=== PATIENT | male | born 1940 | race Caucasian/White ===

== ENCOUNTER 2017-03-27 10:13 | Outpatient (CLI) | payer MEDICARE, BC ==
[2017-03-27 12:22] LABS: #Basophils 0.1 thou/uL (0.0-0.2); #Eosinphils 0.1 thou/uL (0.0-0.7); #Lymphocytes 1.3 thou/uL (1.20-3.40); #Monocytes 0.7 thou/uL (0.11-0.59); #Neutrophils 5.1 thou/uL (1.40-6.50); %Basophils 0.7 % (0.0-1.0); %Eosinophils 1.2 % (0.0-10.0); %Lymphocytes 18.1 % (21.0-51.0); %Monocytes 9.3 % (0.0-10.0); Mean Platelet Volume 8.8 fL (7.4-10.4); Red Blood Cell (RBC) Count 5.11 mill/uL (4.70-6.10); White Blood Cell (WBC) Count 7.1 thou/uL (4.8-10.8)
[2017-03-27 12:33] LABS: PTT 32.7 SEC (22.9-36.1)
[2017-03-27 12:53] LABS: ALT (SGPT) 21 U/L (8-55); AST (SGOT) 22 U/L (5-34); Alkaline Phosphatase 98 U/L (40-150); Anion Gap 10 mmol/L (10-20); BUN (Urea Nitrogen) 15 mg/dL (8.4-25.7); Bilirubin, Total 0.6 mg/dL (0.2-1.2); Calc. Creatinine Clearance 0 mL/min (70-130); Calcium 9.3 mg/dL (7.8-10.44); Carbon Dioxide 28 mmol/L (23-31); Chloride 107 mmol/L (98-107); Estimated GFR-MDRD Greater than 90; Globulin 2.3 g/dL (2.4-3.5); Protein, Total 6.5 g/dL (5.8-8.1)
== END 2017-03-27 10:14 | disposition home or self-care (01) ==
LOC: LABBT 10:13
PROVIDERS: ATTEND Surgery
DX: Z01.818 Encounter for other preprocedural examination (principal); K40.90 Unilateral inguinal hernia, without obstruction or gangrene, not specified as recurrent
CPT/HCPCS: 80053; 85025; 85610; 85730; 93005; 93010

== ENCOUNTER 2017-04-03 10:01 | Day surgery (SDC) | payer MEDICARE, BC ==
[2017-03-27 10:43] VITALS: BMI 30.4
[2017-04-03] MEDS ORDERED: CEFAZOLIN/Water 2 GM/20 ML SYRINGE ONE (10:37)
[2017-04-03] MEDS ORDERED: Ondansetron HCl/PF 4 MG/2 ML Vial ONE (11:05)
[2017-04-03] MEDS ORDERED: PHENYLEPHRINE-NS 100 MCG/ML 10 ML SYRINGE ONE (11:05)
[2017-04-03] MEDS ORDERED: Lidocaine 1% PF 5 ML VIAL ONE (11:05)
[2017-04-03] MEDS ORDERED: Dexamethasone 20 MG/5 ML VIAL ONE (11:05)
[2017-04-03] MEDS ORDERED: Propofol 200 MG/20 ML VIAL ONE (11:05)
[2017-04-03] MEDS ORDERED: Metoclopramide HCl 10 MG/2 ML VIAL ONE (11:05)
[2017-04-03] MEDS ORDERED: Bupivacaine/Epinephrine 0.25% 30 ML VIAL ONE (11:59)
[2017-04-03] MEDS ORDERED: HYDROmorphone 0.5 MG/0.5 ML SYRINGE ONE (12:23)
[2017-04-03] MEDS ORDERED: Fentanyl 100 MCG/2 ML VIAL ONE (12:23)
[2017-04-03] MEDS ORDERED: Lidocaine 2% PF 5 ML VIAL ONE (12:32)
--- NOTE | 2017-04-03 13:48 | OP ---
PREOPERATIVE DIAGNOSIS: Left inguinal hernia. SURGEON: Dr. Addi Godoy. PROCEDURE PERFORMED: Left inguinal hernia repair with mesh. INDICATIONS: This is a 77-year-old male with a painful bulge in the left groin and was found to have a hernia. FINDINGS: Left indirect inguinal hernia. PROCEDURE IN DETAIL: After informed consent was obtained, the patient was taken to the operating judy m and given general mask anesthesia, placed in the supine position. His groin area was prepped and d raped in the usual fashion. Local anesthesia infiltrated subcutaneously and deep. A transverse left inguinal incision was performed. The subcu divided sharply. The fascia of the external oblique was incised in the direction of its fibers through the external ring. Spermatic cord isolated with a Pe nrose drain. The hernia sac was dissected from surrounding cord structures down to the internal ring and reduced. Reduction was maintained utilizing a PHS hernia system. The posterior layer placed in the preperitoneal space. Anterior, it was laid out. It was sutured to the pubic tubercle medially, tucked under the external oblique fascia laterally. A notch was cut out for the spermatic cord. Th e external oblique fascia was then closed over the cord with a running 3-0 Vicryl after hemostasis as sured, then Francisco was closed with interrupted 3-0 Vicryl and the skin closed with a running subcutic ular 4-0 Rapide. Steri-Strips applied. Sterile bandage applied. The patient tolerated the procedur e well and transferred to recovery in good condition. Sponge and needle count verified correct x2.
== END 2017-04-03 15:10 | disposition home or self-care (01) ==
LOC: SDC 10:01
PROVIDERS: ATTEND Surgery
PROC: 0YU60JZ Supplement Left Inguinal Region with Synthetic Substitute, Open Approach (ICD-10-PCS; principal; 2017-04-03)
DX: K40.90 Unilateral inguinal hernia, without obstruction or gangrene, not specified as recurrent (principal); Z86.73 Personal history of transient ischemic attack (TIA), and cerebral infarction without residual deficits; I10 Essential (primary) hypertension; I48.91 Unspecified atrial fibrillation; K21.9 Gastro-esophageal reflux disease without esophagitis; E78.00 Pure hypercholesterolemia, unspecified; Z79.01 Long term (current) use of anticoagulants; Z79.899 Other long term (current) drug therapy; Z88.5 Allergy status to narcotic agent; Z88.2 Allergy status to sulfonamides; Z96.653 Presence of artificial knee joint, bilateral; Z97.0 Presence of artificial eye; Z96.1 Presence of intraocular lens; Z90.49 Acquired absence of other specified parts of digestive tract; Z90.89 Acquired absence of other organs; Z98.890 Other specified postprocedural states; Z85.828 Personal history of other malignant neoplasm of skin
CPT/HCPCS: 49505; C1781; J0131; J1100; J1170; J2001; J2405; J2704; J2765; J3010

== ENCOUNTER 2017-04-04 10:50 | Observation (INO) | payer MEDICARE, BC ==
[2017-04-04 11:47] LABS: #Lymphocytes 1.6 thou/uL (1.20-3.40); #Neutrophils 7.2 thou/uL (1.40-6.50); %Basophils 0.2 % (0.0-1.0); %Eosinophils 0.4 % (0.0-10.0); %Lymphocytes 16.3 % (21.0-51.0); %Monocytes 9.8 % (0.0-10.0); %Neutrophils 73.3 % (42.0-75.0); Mean Corpuscular HGB CONC 32.8 g/dL (32.0-36.0); Mean Corpuscular Hemoglobin 32.4 pg (27.0-31.0); Mean Corpuscular Volume 98.7 fl (80.0-94.0); Mean Platelet Volume 8.7 fL (7.4-10.4); Platelet Count 111 thou/uL (130-400); RBC Distribution Width 11.7 % (11.5-14.5); Red Blood Cell (RBC) Count 4.93 mill/uL (4.70-6.10); White Blood Cell (WBC) Count 9.8 thou/uL (4.8-10.8)
--- NOTE | 2017-04-04 12:02 | CT ---
CT BRAIN NONCONTRAST: HISTORY: A 77-year-old male with acute stroke symptoms: altered mental status and dysarthria. Dr. Rogel gave verbal report to Dr. Nguyen of the emergency department at 11:30 a.m. for this stroke al ert protocol CT. FINDINGS: There is no midline shift or any other mass effect. There is no evidence of acute intracranial hemor rhage, large cortical infarct, obstructive hydrocephalus, or extraaxial fluid collection. The calvar ium is intact. There is diffuse parenchymal volume loss. There are low attenuation areas in the whi te matter. These are nonspecific, but in a patient of this age, they are probably chronic ischemic w luis matter changes due to microvascular atherosclerosis. IMPRESSION: 1) No acute intracranial findings. 2) Involutional changes and chronic ischemic white matter changes. CODE CR jn [] POS: [facility]
[2017-04-04] MEDS ORDERED: ISOVUE-370 76%-LOCM 1 ML ONE (12:03)
[2017-04-04 12:12] LABS: CKMB 4.9 ng/mL (0-6.6); Troponin I Less than 0.010 ng/mL (< 0.028)
[2017-04-04 12:13] LABS: ALT (SGPT) 64 U/L (8-55); AST (SGOT) 47 U/L (5-34); Alkaline Phosphatase 91 U/L (40-150); Anion Gap 12 mmol/L (10-20); BUN (Urea Nitrogen) 18 mg/dL (8.4-25.7); Bilirubin, Total 0.6 mg/dL (0.2-1.2); CK (CPK) 120 U/L (30-200); Calc. Creatinine Clearance 0 mL/min (70-130); Calcium 9.2 mg/dL (7.8-10.44); Carbon Dioxide 26 mmol/L (23-31); Chloride 105 mmol/L (98-107); Estimated GFR-MDRD 74; Globulin 2.3 g/dL (2.4-3.5); Glucose 193 mg/dL (83-110); Protein, Total 6.3 g/dL (5.8-8.1); Sodium 139 mmol/L (136-145)
--- NOTE | 2017-04-04 12:26 | CT ---
CT ANGIOGRAM OF THE NECK WITH CONTRAST CT ANGIOGRAM OF THE HEAD WITH CONTRAST CT PERFUSION OF HEAD WITH CONTRAST: Date: 04-04-17 History: 77-year-old male with altered mental status, dizziness, confusion. This stat [facility] alert protocol report given verbally to Dr. Nguyen at 12:05 pm, 04/04/2017. Technique: IV contrast bolus injection of Isovue. Arterial bolus chasing technique scan performed from pio to vertex of head. Coronal and sagittal 3 D MIP reconstructions. Multiple post contrast axial images through the head performed excluding the u pper and lower portions of the brain. FINDINGS: On the perfusion scan, there is no asymmetry in mean transit time, IRF, cerebral arterial blood flow, or cerebral arterial blood volume. No evidence of high grade stenosis or occlusion of anterior circu lation or posterior circulation in the [place]. Left vertebral artery is dominant. Atheroscl erotic calcification of carotid siphons bilaterally. No intracranial aneurysm identified. Calcified p laque in the bilateral carotid bulbs. No high grade stenosis of bilateral internal carotid arteries o r common carotid arteries, although left internal carotid artery images are very degraded by dense IV contrast material in adjacent left internal jugular vein. Origin of left common carotid artery obscu red by streak artifact from adjacent dense contrast bolus in the left subclavian vein and left internet site designer al jugular vein. IMPRESSION: 1. No evidence of cerebral ischemia or infarction. 2. No high grade stenosis of major arteries of the neck or intracranially, although the evaluation of the left neck arteries is limited. 3. Cervical spondylosis. Code CR POS: [facility]
--- NOTE | 2017-04-04 12:39 | RAD ---
PORTABLE CHEST: History: Chest pain. Comparison: 08-18-14 FINDINGS: Lungs are clear. No infiltrate. Heart size upper normal but stable. Aortic calcifications unchanged i n appearance. Vascular markings normal. IMPRESSION: No acute process identified. POS: [facility]
[2017-04-04] MEDS ORDERED: HYDROcodone/Acetaminophen 7.5/325 mg Tablet PO PRN (14:25)
[2017-04-04] MEDS ORDERED: Ondansetron ODT 4 MG TAB PO PRN (14:25)
[2017-04-04] MEDS ORDERED: HYDROcodone/Acetaminophen 5/325 mg Tablet PO PRN (14:25)
[2017-04-04 15:28] LABS: INR-International Normal Ratio 1.1
--- NOTE | 2017-04-04 15:32 | ULT ---
ULTRASOUND CAROTID DOPPLER STANDARD: HISTORY: TIA, disequilibrium, diplopia. COMPARISON: Ultrasound 2008. TECHNIQUE: Real-time cool scale, color Doppler, and spectral analysis of the extracranial carotid arteries perfo rmed. FINDINGS: No elevated peak systolic velocities within the internal carotid arteries. Antegrade flow both verte bral arteries. Moderate atherosclerotic plaque. IMPRESSION: No hemodynamically significant stenosis. POS: [facility]
[2017-04-04 15:48] LABS: Troponin I 0.016 ng/mL (< 0.028)
--- NOTE | 2017-04-04 16:31 | MRI ---
MR OF THE BRAIN WITHOUT CONTRAST: INDICATION: Lightheadedness and feeling unsteady with double vision. TECHNIQUE: Multiplanar, multisequence MR images were obtained of the brain without IV contrast. Comparisons are made with a prior CT examination of the brain dated 04/04/17. FINDINGS: No area of restricted diffusion is seen to suggest the presence of acute ischemia. There is a tiny r emote lacunar infarct involving the right cerebellar hemisphere. There is mild chronic small-vessel white matter ischemic change. The septum pellucidum and third ventricle are midline. The intracrani al arteries demonstrate appropriate flow voids. The skull and extracranial soft tissues appear withi n normal limits. No intracranial hemorrhage is evident. IMPRESSION: 1. No acute intracranial abnormality. 2. Mild chronic small-vessel white matter ischemic change. POS: [facility]
[2017-04-04 17:09] VITALS: BMI 30.5
[2017-04-04] MEDS ORDERED: Warfarin Sodium 7.5 MG TAB PO SCH (17:30)
[2017-04-04] MEDS ORDERED: hydrALAZINE 20 MG/ML VIAL SLOW IVP PRN (18:11)
[2017-04-04 19:10] LABS: Troponin I Less than 0.010 ng/mL (< 0.028)
[2017-04-04] MEDS ORDERED: OXcarbazepine 600 MG TAB PO SCH (21:00)
[2017-04-04] MEDS ORDERED: Digoxin 0.125 MG TAB PO SCH (21:00)
[2017-04-04] MEDS ORDERED: Atorvastatin Calcium 40 MG TAB PO SCH (21:00)
[2017-04-04] MEDS: Famotidine 20 MG TAB PO SCH (21:52)
[2017-04-04] MEDS: Acetaminophen 325 MG TAB PO PRN (21:53)
[2017-04-04] MEDS: Enoxaparin Sodium 100 MG/ML SYRINGE SC SCH (21:53)
[2017-04-04] MEDS: OXcarbazepine 300 MG TAB PO SCH (21:54)
--- NOTE | 2017-04-04 22:09 | CON ---
DATE OF CONSULTATION: 04/04/2017 REASON FOR CONSULTAION: Gait imbalance, dizziness. REFERRING PHYSICIAN: Dr. Jude Sal. HISTORY OF PRESENT ILLNESS: Mr. Najera is a pleasant 77-year-old male who has been cons ulted for evaluation of gait imbalance and dizziness. Patient reports that this morning, he was at h ome sitting down on his office table, working on his work and suddenly noted feeling off balance. He also noted double vision to come on, he did not feel good, which prompted him to feel as if he needs to lay down on to his bed, when he tried to walk, he felt off balance and wobbly. His had call ed his primary care physician's office who advised them to bring him to the [facility] for further evaluation. He reports that on arrival here, his symptoms did improve, he was noted to have significantly elevated blood pressure on arrival to the ER. He says that normally over the past 2-4 weeks he has been checked multiple times by his physicians, but his blood pressure has been runn ing normal. This is the first time that has been really elevated. He denies having any headache, ch est pain, palpitation, nausea, vomiting, abdominal pain, numbness, tingling, or weakness. He does patricio ve a history of trigeminal neuralgia on the right side of the face for which he takes Trileptal. He says that recently, he had increased the dose of Trileptal to 300 mg 1/2 tablet twice a day. He also had a hernia repair done on yesterday. PAST MEDICAL HISTORY: Significant for hypertension, GERD, hyperlipidemia, atrial fibrillation, histo ry of stroke, and trigeminal neuralgia. PAST SURGICAL HISTORY: Significant for cardiac ablation done, bilateral knee replacement, cataract s urgery in both sides, hernia repair, lumbar spine surgery, right wrist surgery and appendectomy. SOCIAL HISTORY: He denies smoking, alcohol use, or illicit drug use. He is . CURRENT MEDICATIONS: Please review MAR. ALLERGIES: Include CODEINE and SULFA DRUGS. REVIEW OF SYSTEMS: As mentioned above in the HPI, otherwise negative. PHYSICAL EXAMINATION: VITAL SIGNS: Blood pressure of 197/109, pulse of 75, temperature of 98.9, respirations of 18, O2 sat s of 95% on room air. GENERAL: Well-developed, well-nourished male in no apparent distress. RESPIRATORY: Clear to auscultation bilaterally. CARDIOVASCULAR: Regular rate and rhythm. NEUROLOGIC: Mental status: Patient is awake, alert, oriented x3. Speech and language: Fluent spee ch. Cranial nerves: Pupils are 3 mm and reactive. Visual pugh are intact. External muscles are intact. No nystagmus noted. Face is symmetric. Tongue and uvula are midline. Motor exam showed no rmal tone and bulk with 5/5 strength in both upper and lower extremities. Sensory: Sensation is int act and symmetric. Deep tendon reflexes 2+ reflexes in both upper and lower extremities. Babinski: Plantar responses flexion bilaterally. Deep tendon reflexes are 2+ reflexes in both upper and lower extremities. Coordination intact to [id number]-hyfa-[id number] tapping bilaterally. LABORATORY DATA: Reviewed, which included CBC, coag panel, CMP, which is significant for glucose of 193, AST of 47, ALT of 64. PT of 14.0, INR 1.1, otherwise unremarkable. IMAGING STUDIES: MRI brain without contrast was reviewed, which showed no acute intracranial abnorma lity. CT angiogram of the head and neck were reviewed, which showed no acute intracranial or extracr anial vascular abnormality. IMPRESSION: 1. Transient ischemic attack. 2. Malignant hypertension. 3. Atrial fibrillation. ASSESSMENT AND PLAN: Mr. Najera is a pleasant 77-year-old male who presented with the e pisodes of feeling off balance and diplopia that has now resolved. On arrival here, his blood pressu re is noted to be significantly elevated. This is likely suggestive of hypertensive urgency. At thi s time, I will recommend continuing current medical management. I have advised him that he needs to manage his blood pressure 2-3 twice a day for the next 2-4 weeks to keep diary of his blood pressure and so that his primary care physician can adjust his medications. Also, his INR level is only 1.1 w hile on therapeutic Coumadin, thus he needs to be discussing with his primary care physician to adjus t the dosage of his Coumadin. No further neurological workup needed from my standpoint.
[2017-04-05] MEDS: Acetaminophen 325 MG TAB PO PRN ×2 (03:24→09:22)
[2017-04-05 06:32] LABS: Anion Gap 12 mmol/L (10-20); BUN (Urea Nitrogen) 13 mg/dL (8.4-25.7); Calc. Creatinine Clearance 113 mL/min (70-130); Carbon Dioxide 26 mmol/L (23-31); Chloride 105 mmol/L (98-107); Estimated GFR-MDRD Greater than 90; Glucose 134 mg/dL (83-110); Potassium 3.8 mmol/L (3.5-5.1); Sodium 139 mmol/L (136-145)
[2017-04-05 06:33] LABS: #Lymphocytes 1.1 thou/uL (1.20-3.40); #Monocytes 0.9 thou/uL (0.11-0.59); #Neutrophils 6.8 thou/uL (1.40-6.50); %Basophils 0.3 % (0.0-1.0); %Eosinophils 0.5 % (0.0-10.0); %Lymphocytes 12.2 % (21.0-51.0); %Monocytes 10.5 % (0.0-10.0); %Neutrophils 76.5 % (42.0-75.0); Hemoglobin 15.8 g/dL (14.0-18.0); Mean Corpuscular HGB CONC 33.3 g/dL (32.0-36.0); Mean Corpuscular Hemoglobin 32.8 pg (27.0-31.0); Mean Corpuscular Volume 98.5 fl (80.0-94.0); Mean Platelet Volume 7.9 fL (7.4-10.4); Platelet Count 105 thou/uL (130-400); Red Blood Cell (RBC) Count 4.83 mill/uL (4.70-6.10); White Blood Cell (WBC) Count 8.8 thou/uL (4.8-10.8)
[2017-04-05 06:46] LABS: INR-International Normal Ratio 1.1; Prothrombin Time 14.3 SEC (12.0-14.7)
[2017-04-05 07:51] VITALS: TEMP 98.1
[2017-04-05] MEDS: Famotidine 20 MG TAB PO SCH (08:22)
[2017-04-05] MEDS: Enoxaparin Sodium 100 MG/ML SYRINGE SC SCH (08:23)
[2017-04-05] MEDS ORDERED: Furosemide 20 MG TAB PO SCH (09:00)
[2017-04-05] MEDS ORDERED: Hydrochlorothiazide 25 MG TAB PO SCH (09:00)
[2017-04-05] MEDS ORDERED: Potassium Chloride 10 MEQ TAB PO SCH (09:00)
[2017-04-05] MEDS: OXcarbazepine 300 MG TAB PO SCH (09:14)
--- NOTE | 2017-04-05 15:02 | DIS ---
PRIMARY CARE PHYSICIAN: Dr. Ronnie Banegas. PRIMARY EDITOR SOUND: Dr. Flash Guillen. DATE OF ADMISSION: 04/04/2017 DATE OF DISCHARGE: 04/05/2017 DISCHARGE DIAGNOSES: 1. Hypertensive urgency. 2. Hypertension. 3. Atherosclerotic heart disease/coronary artery disease. 4. Hyperlipidemia. 5. Trigeminal neuralgia. 6. Chronic atrial fibrillation, on chronic anticoagulation. CONSULTATION: Dr. Linda Saunders on 04/04/2017. PROCEDURES PERFORMED: 1. MRI of the brain, negative for acute ischemia. 2. Carotid Doppler, negative for hemodynamically significant stenoses. 3. A CT scan of the brain and CTA with brain perfusion, negative for acute disease. HISTORY AND PHYSICAL: Mr. Najera is a 77-year-old gentleman who was in his normal state of health until 04/04, while getting things ready for the holidays, he developed a horizontal diplop ia, and felt dysequilibrium. He presented to the Emergency Department for evaluation. Symptoms reso lved, but his blood pressure was still elevated. We were called for admission for rule out stroke ve rsus TIA. HOSPITAL COURSE: The patient was seen and examined by me in the Emergency Department, other than the blood pressure of 190s over 110s, his exam was negative. He was placed in observation in the stroke unit and was monitored. Telemetry remained negative. Blood pressure after getting his regular medi cations remained in the 140s-150s systolic overnight; however, this morning it was back in the 190s o susana 110s. He had no further neurologic symptoms. Imaging studies were all negative. The patient wa s seen by neurology last night who felt it was all hypertensive urgency related to his hypertension. Today, once the blood pressure morning medicines were given, his blood pressure medicines were adjust ed to increase his Cardizem to 240 mg q.24 hours and his HCTZ to 25 mg daily and the patient was disc harged home with outpatient followup. PHYSICAL EXAMINATION: The patient was seen and examined on the day of discharge. Discharge plan and disposition was discussed with the patient and his [id number]-ci-dbbn at the bedside. DISCHARGE MEDICATIONS: 1. Hydrochlorothiazide increased to 25 mg p.o. daily, prescription for 90 days with 1 refill sent. 2. Diltiazem CD increased to 240 mg q.24 hours one tablet daily, prescription for 90 days with 1 ref ill sent. 3. Tylenol as needed. 4. Lipitor 40 mg p.o. at bedtime. 5. Lanoxin 0.125 mg p.o. at bedtime. 6. Zetia 10 mg p.o. at bedtime. 7. Lasix 20 mg daily. 8. Juice plus multivitamin daily. 9. Losartan 100 mg p.o. at bedtime. 10. Trileptal 450 mg p.o. b.i.d. 11. Protonix 40 mg daily. 12. Klor-Con 10 mEq daily. 13. Coumadin 7.5 mg daily to be directed. DISCHARGE DIET: Heart healthy. DISCHARGE ACTIVITY: Per cardiopulmonary limits. FOLLOWUP APPOINTMENTS: 1. Primary care physician, Dr. Patel in a week. 2. Dr. Flash Guillen in 1-2 weeks. 3. Coumadin Clinic as scheduled. Patient had been off his Coumadin for a hernia repair surgery that occurred on 04/03/2017. He restar gerard his Coumadin the night of surgery. INR remains at 1.1 and he is not receiving any Lovenox. DISCHARGE CONDITION: Good. DISPOSITION: Being discharged home via private vehicle.
[2017-04-05] MEDS ORDERED: Warfarin Sodium 7.5 MG TAB PO SCH (17:00)
[2017-04-05 18:15] VITALS: BP 169/112
[2017-04-05] MEDS ORDERED: Losartan 25 MG TAB PO SCH (21:00)
--- NOTE | 2017-04-06 22:27 | HP ---
PRIMARY CARE PHYSICIAN: Ronnie Banegas M.D. DATE OF ADMISSION: 04/04/2017 TIME OF SERVICE: 1400 hours. CHIEF COMPLAINT: Lightheadedness and dizziness and double vision. HISTORY OF PRESENT ILLNESS: Mr. Najera is a pleasant 77-year-old gentleman with history of atrial fibrillation and atrial flutter and chronic atrial fibrillation, prediabetes, hyperlipidemia, hypertension, and history of cerebrovascular disease with stroke back in 2008, who presents to the ER today for an episode of lightheadedness and dizziness accompanied by some double vision. He started having headache one day prior to presentation. Denies any nausea, vomiting, no syncope or presyncope. Specifically, denies vertigo or true dizziness. He states he was off balance. He describes a case of horizontal diplopia where his son-in-law, there were 3 of him side by side. He did not have any nausea, vomiting, or diaphoresis. No headaches after that. The patient had been up in the morning, doing his normal stuff and felt fine. He had been ordering food for the holiday meals and had acute onset of this lightheaded and dizziness midmorning. He was brought to the Emergency Department for further evaluation. In the Emergency Department, he had a CT scan of the brain and CT angiogram perfusion study, they were unremarkable, we were subsequently called for admission for further workup to rule out. Right now, his symptoms have completely resolved. Blood pressure in the Emergency Department was very high in the 180s to 190s over 100s. PAST MEDICAL HISTORY: 1. Atrial fibrillation/atrial flutter. 2. Trigeminal neuralgia. 3. Prediabetes. 4. Hyperlipidemia. 5. Hypertension. 6. Cerebrovascular disease with stroke back in 2008. PAST SURGICAL HISTORY: Includes 1. Atrial flutter ablation. 2. Left hernia repair on 04/03/[address] Godoy, which is yesterday. 3. Bilateral total knee arthroplasties. 4. Left eye surgery. 5. Bilateral cataract replacement. 6. Back surgery in 1986. 7. Right wrist surgery remotely. 8. Appendectomy as a child. HOME MEDICATIONS: 1. Digoxin 0.125 mg p.o. daily. 2. Diltiazem extended release 180 mg daily. 3. Atorvastatin 40 mg p.o. at bedtime. 4. Pantoprazole 40 mg p.o. q.a.m. 5. Warfarin 7.5 mg daily, he has been off of that since 03/29/2017 and had been on Lovenox injections in the evening before his 04/03/2017 surgery and started Coumadin back the night of the surgery on 04/03/2017. 6. Losartan 100 mg p.o. q.p.m. 7. Oxcarbazepine 300 mg b.i.d., just recently increased to 450 b.i.d. 8. Hydrochlorothiazide 12.5 mg daily. 9. Lasix 20 mg daily. 10. Pot Chlor liquid 20 mEq for 15 mL, that is 10 mEq once a day after meals. ALLERGIES: CODEINE and SULFA. FAMILY HISTORY: Negative for clotting or bleeding disorder. No immune dysfunction. No premature cerebrovascular disease or myocardial infarction. SOCIAL HISTORY: Rare alcohol. No IV drug use. He does not smoke. He is and his accompanies him with multiple family members. REVIEW OF SYSTEMS: A 10-point review of system was performed and negative for all other systems except as stated per HPI. PHYSICAL EXAMINATION: VITAL SIGNS: Temperature 97.3, pulse 89, blood pressure 144/86, respiratory rate 16, and sat 94% on room air. GENERAL: He is awake, he is alert, and he is oriented x3. He is a well- developed, well-nourished white female, appears to be in no distress. HEENT: Normocephalic, atraumatic. Pupils equal and reactive bilaterally. Mucous membranes are moist. There are no visible lesions, no thrush. NECK: Supple, without lymphadenopathy, JVD, or thyromegaly. He has normal carotid upstrokes without bruits. LUNGS: Clear to auscultation bilaterally. He has good air movement with symmetrical chest excursion. There is no prolonged expiratory phase, no wheezes , rales or rhonchi. CARDIAC: Irregular rhythm and a normal rate. Normal S1 and S2. He has a faint holosystolic murmur best heard at the apex, rated at 2/6. ABDOMEN: Soft, it is nontender, nondistended, he has no masses, no organomegaly. No rebound, rigidity, or guarding. His right lower abdomen has a postop dressing from his hernia repair that is clean, dry, intact. No strike- through. EXTREMITIES: Shows no cyanosis, no clubbing. Trace bilateral lower extremity edema, which is chronic. SKIN: Warm, moist, and well perfused. He has rashes, no lesions. NEUROLOGIC: Cranial nerves II through XII grossly intact. He has normal speech pattern, he does not have diplopia with extremes of gaze. He has a normal conjugate eye movement. He has 5/5 strength in all 4 of his extremities. Sensation is intact. No focal deficits. MUSCULOSKELETAL: Normal to inspection. His joints appear uninflamed without effusions. LABORATORY STUDIES: Sodium is 139, potassium 4.0, chloride 105, bicarbonate 26 , BUN 18, creatinine 0.99, calcium 9.2, and glucose 199. CK-MB was 4.9 and total CK 120. Troponin I was undetectable, less than 0.010. No INR was done. CBC showed a white count of 9.8, hemoglobin 16.0, hematocrit 48.6, and platelets of 111,000. RADIOGRAPHIC STUDIES: He had a CT angiogram and perfusion of the brain negative for ischemic changes, and his CT brain was negative except for chronic ischemic microvascular changes. ASSESSMENT AND PLAN: 1. Possible transient ischemic attack: Patient's blood pressures are extremely high, so it could be a hypertensive encephalopathic event. We will control the blood pressure. We will get an MRI of the brain to rule out any acute ischemic events, and the CT angiogram of the brain while negative for ischemia, there were some scattered artifact from both contrast given and did not get good picture of the bifurcation, we will get a carotid ultrasound. Keep the the patient on aspirin 325 mg daily. We will get a fasting lipid profile, and continue his atorvastatin. Neurology will be consulted for their recommendations. 2. Atrial fibrillation/flutter, stable. Continue home medications. 3. Trigeminal neuralgia, on oxcarbazepine. We will continue. 4. History of prediabetes. We will check his blood sugars and sliding scale insulin. 5. Hyperlipidemia, on atorvastatin. 6. Hypertension, on losartan, diltiazem, hydrochlorothiazide, and Lasix. We will continue these and then adjust as needed. Hydralazine has been ordered p.r.n. systolic pressure greater than 170. MTDD
--- NOTE | 2017-04-13 11:33 | CT ---
CT ANGIOGRAM OF THE NECK WITH CONTRAST CT ANGIOGRAM OF THE HEAD WITH CONTRAST CT PERFUSION OF HEAD WITH CONTRAST: Date: 04-04-17 History: 77-year-old male with altered mental status, dizziness, confusion. This stat [facility] alert protocol report given verbally to Dr. Nguyen at 12:05 pm, 04/04/2017. Technique: IV contrast bolus injection of Isovue. Arterial bolus chasing technique scan performed from pio to vertex of head. Coronal and sagittal 3 D MIP reconstructions. Multiple post contrast axial images through the head performed excluding the u pper and lower portions of the brain. FINDINGS: On the perfusion scan, there is no asymmetry in mean transit time, IRF, cerebral arterial blood flow, or cerebral arterial blood volume. No evidence of high grade stenosis or occlusion of anterior circu lation or posterior circulation in the [place]. Left vertebral artery is dominant. Atheroscl erotic calcification of carotid siphons bilaterally. No intracranial aneurysm identified. Calcified p laque in the bilateral carotid bulbs. No high grade stenosis of bilateral internal carotid arteries o r common carotid arteries, although left internal carotid artery images are very degraded by dense IV contrast material in adjacent left internal jugular vein. Origin of left common carotid artery obscu red by streak artifact from adjacent dense contrast bolus in the left subclavian vein and left education intern al jugular vein. IMPRESSION: 1. No evidence of cerebral ischemia or infarction. 2. No high grade stenosis of major arteries of the neck or intracranially, although the evaluation of the left neck arteries is limited. 3. Cervical spondylosis. Code CR
== END 2017-04-05 11:19 | disposition home or self-care (01) ==
LOC: ERS 10:50 → 2SE 14:25
PROVIDERS: ADMIT Internal Medicine Infectious Disease; ATTEND Internal Medicine Infectious Disease
DX: I16.0 Hypertensive urgency (principal); I10 Essential (primary) hypertension; I25.10 Atherosclerotic heart disease of native coronary artery without angina pectoris; E78.5 Hyperlipidemia, unspecified; G50.0 Trigeminal neuralgia; I48.2 Chronic atrial fibrillation; I48.92 Unspecified atrial flutter; R73.03 Prediabetes; K21.9 Gastro-esophageal reflux disease without esophagitis; Z86.73 Personal history of transient ischemic attack (TIA), and cerebral infarction without residual deficits; Z79.01 Long term (current) use of anticoagulants; Z88.2 Allergy status to sulfonamides; Z88.5 Allergy status to narcotic agent; Z98.890 Other specified postprocedural states; Z79.899 Other long term (current) drug therapy
CPT/HCPCS: 0042T; 70450; 70496; 70498; 70551; 71010; 80048; 80053; 82550; 82553; 82962; 84484 ×2; 85025 ×2; 85610 ×2; 93005; 93880; 96372 ×2; 96374; 97139 ×3; 97530; 99285; G0378; G8978; G8979; G8980; G8987; G8988; G8989; 36415; 36416; J0360; J1650

== ENCOUNTER 2017-04-08 10:18 | Emergency (ER) | payer MEDICARE, BC ==
[2017-04-08 10:48] LABS: #Neutrophils 4.9 thou/uL (1.40-6.50); %Basophils 0.7 % (0.0-1.0); %Eosinophils 1.3 % (0.0-10.0); %Monocytes 10.1 % (0.0-10.0); Hematocrit 49.8 % (42.0-52.0); Red Blood Cell (RBC) Count 5.02 mill/uL (4.70-6.10)
[2017-04-08 10:49] LABS: #Eosinphils 0.1 thou/uL (0.0-0.7); #Lymphocytes 1.3 thou/uL (1.20-3.40); #Monocytes 0.7 thou/uL (0.11-0.59)
[2017-04-08 10:59] LABS: PTT 29.8 SEC (22.9-36.1); Prothrombin Time 17.2 SEC (12.0-14.7)
[2017-04-08 11:11] LABS: ALT (SGPT) 39 U/L (8-55); AST (SGOT) 23 U/L (5-34); Alkaline Phosphatase 84 U/L (40-150); Anion Gap 14 mmol/L (10-20); BUN (Urea Nitrogen) 22 mg/dL (8.4-25.7); Bilirubin, Total 0.8 mg/dL (0.2-1.2); CK (CPK) 103 U/L (30-200); Calc. Creatinine Clearance 0 mL/min (70-130); Calcium 9.3 mg/dL (7.8-10.44); Carbon Dioxide 28 mmol/L (23-31); Chloride 101 mmol/L (98-107); Estimated GFR-MDRD 63; Globulin 2.7 g/dL (2.4-3.5); Lipase 28 U/L (8-78); Protein, Total 6.9 g/dL (5.8-8.1)
[2017-04-08 11:16] LABS: Troponin I Less than 0.010 ng/mL (< 0.028)
[2017-04-08] MEDS ORDERED: Furosemide 40 MG/4 ML VIAL ONE (11:23)
[2017-04-08] MEDS ORDERED: Nitroglycerin 2% Ointment 1 INCH/1 GM Packet ONE (11:23)
[2017-04-08] MEDS ORDERED: Aspirin 81 mg Enteric Coated Tablet ONE (11:23)
[2017-04-08] MEDS ORDERED: Magnesium 2 GM/NS 0.9% 50 ML 2 GM in Premix Bag 1 BAG IVPB SCH (11:45)
[2017-04-08] MEDS ORDERED: Magnesium 2 GM/NS 0.9% 100 ML 2 GM in Premix Bag 1 BAG IVPB SCH (12:00)
--- NOTE | 2017-04-08 12:46 | RAD ---
AP VIEW CHEST: Date: 04/08/17 HISTORY: Dizziness. FINDINGS: Comparison made to previous exam from 04/04/17. AP view of chest demonstrates ectasia and calcification of the aorta. Mild cardiomegaly seen. The caden gs are well aerated. No evidence of active intrathoracic disease is noted. No evidence of effusions, pneumonia, or pneumothorax seen. IMPRESSION: Unremarkable AP view of chest. POS: [facility]
[2017-04-08 13:10] LABS: Digoxin 0.21 ng/mL (0.8-2.0)
[2017-04-08] MEDS ORDERED: Digoxin 0.5 MG/2 ML AMP ONE (13:27)
--- NOTE | 2017-04-09 13:54 | EKG ---
Test Reason : DIZZINESS Blood Pressure : / mmHG Vent. Rate : 108 BPM Atrial Rate : 090 BPM P-R Int : 000 ms QRS Dur : 096 ms QT Int : 370 ms P-R-T Axes : 000 -24 014 degrees QTc Int : 495 ms Atrial fibrillation with rapid ventricular response Inferior infarct , age undetermined Abnormal ECG Confirmed by REYES GLOVER, JIMMY ([id number]), commissioning editor MASOUD JORDAN ([id number]) on 04/09/2017 1:52:52 PM Referred By: Confirmed By:JIMMY CHAMBERS MD
== END 2017-04-08 14:00 | disposition home or self-care (01) ==
LOC: ERS 10:18
DX: I48.91 Unspecified atrial fibrillation (principal); Z51.81 Encounter for therapeutic drug level monitoring; K21.9 Gastro-esophageal reflux disease without esophagitis; E78.5 Hyperlipidemia, unspecified; I10 Essential (primary) hypertension; G50.0 Trigeminal neuralgia; Z86.73 Personal history of transient ischemic attack (TIA), and cerebral infarction without residual deficits; Z79.01 Long term (current) use of anticoagulants; Z79.899 Other long term (current) drug therapy
CPT/HCPCS: 71010; 80053; 80162; 82553; 83690; 83880; 84484; 85025; 85610; 85730; 93005; 96361; 96365; 96375; J1160; J1940; J3475

== ENCOUNTER 2017-04-10 08:54 | Observation (INO) | payer MEDICARE, BC ==
[2017-04-10] MEDS ORDERED: Lorazepam 2 MG/ML VIAL ONE (10:00)
[2017-04-10] MEDS ORDERED: Meclizine HCl 25 MG TAB ONE (10:00)
[2017-04-10] MEDS ORDERED: Dexamethasone 10 MG/ML VIAL ONE (10:00)
[2017-04-10 10:08] LABS: #Basophils 0.1 thou/uL (0.0-0.2); #Eosinphils 0.1 thou/uL (0.0-0.7); #Lymphocytes 1.5 thou/uL (1.20-3.40); #Monocytes 0.7 thou/uL (0.11-0.59); #Neutrophils 10.2 thou/uL (1.40-6.50); %Basophils 0.5 % (0.0-1.0); %Eosinophils 0.6 % (0.0-10.0); %Monocytes 5.7 % (0.0-10.0); %Neutrophils 81.2 % (42.0-75.0); Hemoglobin 17.2 g/dL (14.0-18.0); Mean Corpuscular HGB CONC 33.4 g/dL (32.0-36.0); Mean Corpuscular Hemoglobin 32.9 pg (27.0-31.0); Mean Corpuscular Volume 98.4 fl (80.0-94.0); Mean Platelet Volume 8.4 fL (7.4-10.4); Platelet Count 156 thou/uL (130-400); RBC Distribution Width 11.6 % (11.5-14.5); Red Blood Cell (RBC) Count 5.22 mill/uL (4.70-6.10); White Blood Cell (WBC) Count 12.5 thou/uL (4.8-10.8)
[2017-04-10 10:12] LABS: ALT (SGPT) 39 U/L (8-55); AST (SGOT) 23 U/L (5-34); Albumin 4.4 g/dL (3.4-4.8); Alkaline Phosphatase 104 U/L (40-150); Anion Gap 16 mmol/L (10-20); BUN (Urea Nitrogen) 28 mg/dL (8.4-25.7); Bilirubin, Total 0.8 mg/dL (0.2-1.2); CK (CPK) 79 U/L (30-200); Calc. Creatinine Clearance 0 mL/min (70-130); Calcium 9.5 mg/dL (7.8-10.44); Carbon Dioxide 30 mmol/L (23-31); Chloride 96 mmol/L (98-107); Estimated GFR-MDRD 56; Globulin 2.4 g/dL (2.4-3.5); Glucose 296 mg/dL (83-110); Potassium 3.5 mmol/L (3.5-5.1); Protein, Total 6.8 g/dL (5.8-8.1); Sodium 138 mmol/L (136-145)
[2017-04-10 10:16] LABS: CKMB 3.5 ng/mL (0-6.6); Troponin I Less than 0.010 ng/mL (< 0.028)
[2017-04-10 10:27] LABS: INR-International Normal Ratio 1.6; Prothrombin Time 19.2 SEC (12.0-14.7)
--- NOTE | 2017-04-10 10:31 | RAD ---
PORTABLE AP CHEST: Date: 04-10-17 History: Dizziness. Comparison: 04-08-17 FINDINGS: Cardiac silhouette and pulmonary vasculature are within normal limits for portable technique of the seble mon. Lungs remain clear. Vascular calcifications are seen in a tortuous thoracic aorta. There has be en no interval change from the prior study. IMPRESSION: No acute cardiopulmonary process. POS: [facility]
--- NOTE | 2017-04-10 10:35 | CT ---
CT OF THE BRAIN WITHOUT CONTRAST: Date: 04/10/17 COMPARISON: 04/04/17. HISTORY: Dizziness and altered mental status. TECHNIQUE: Multiple contiguous axial images were obtained in a CT of the brain without contrast. FINDINGS: There are scattered hypodensities in the subcortical and periventricular white matter, likely seconda ry to small vessel ischemic disease. There are calcifications in the right basal ganglia, unchanged. There is no evidence of hydrocephalus, intracranial hemorrhage, or extra-axial fluid collection. The calvarium and overlying soft tissues are unremarkable. The visualized paranasal sinuses and masto id air cells are well aerated. IMPRESSION: No evidence of acute intracranial abnormality. POS: [facility]
[2017-04-10 13:50] LABS: Lactic Acid 2.6 mmol/L (0.5-2.2)
[2017-04-10] MEDS ORDERED: Zolpidem Tartrate 5 MG TAB PO PRN (14:10)
[2017-04-10] MEDS ORDERED: Acetaminophen 325 MG TAB PO PRN (14:10)
[2017-04-10] MEDS ORDERED: Ondansetron HCl/PF 4 MG/2 ML Vial IVP PRN (14:10)
[2017-04-10] MEDS ORDERED: Labetalol HCl 100 MG/20 ML VIAL SLOW IVP PRN (14:10)
[2017-04-10] MEDS ORDERED: hydrALAZINE 20 MG/ML VIAL SLOW IVP PRN (14:10)
[2017-04-10 14:57] LABS: Free Thyroxine Index 1.12 (1.4-3.1); T4 3.9 ug/dL (4.87-11.72); Thyroid Stimulating Hormone 0.1323 uIU/mL (0.35-4.94)
[2017-04-10 15:09] VITALS: BMI 28.3
--- NOTE | 2017-04-10 16:58 | HP ---
PRIMARY CARE PROVIDER: Dr. Banegas. RN ORTHOPAEDIC: Dr. Guillen. HISTORY OF PRESENT ILLNESS: The patient with multiple medical problems who presents today for the th ird time in less than 10 days with ataxia, dizziness best described as lightheaded, and unsteady. I cannot get any vertigo symptomatology from him. When he first arose, he had no problem, but he went back to bed for a while when he got up, he was unsteady, wobbly. There was a question of possibly so me lateral diplopia, no speech effect, no focal weakness, no headache. It is quite pertinent that th e patient was in the hospital with similar symptoms less than a week ago. At that point, he had an u nremarkable brain MRI, unremarkable CTA of the head and neck with perfusion, unremarkable carotid Dop pler. He was seen in that time by a neurologist Dr. Linda Saunders, who suggested no further neurologica l workup and that had been done. PAST MEDICAL HISTORY: Pertinent for atrial fibrillation/flutter, he is post-ablation for flutter, st ill in atrial fibrillation. He has right trigeminal neuralgia. He has an abnormal glucose tolerance , but not hugo diabetes; hyperlipidemia; hypertension; cerebrovascular accident in 2008 with no resi dual. PAST SURGICAL HISTORY: He has had a left hernia repair in 04/03/[address] Godoy, bilateral total k nee arthroplasties, bilateral cataract replacement surgery, back surgery in 1986, and appendectomy as a child. CURRENT MEDICATIONS: Digoxin 250 mcg a day, Cardizem 240 mg a day, Lipitor 40 mg a day, Protonix 40 mg a day, warfarin 7.5 mg a day, losartan 100 mg a day, Trileptal 450 mg p.o. b.i.d., hydrochlorothia zide 12.5 mg a day, Lasix 20 mg a day, potassium chloride 10 mEq a day. ALLERGIES: CODEINE and SULFA. FAMILY HISTORY: Negative for bleeding diathesis, no immune dysfunction. No premature coronary arter y disease, cerebral vascular disease. SOCIAL HISTORY: Rare alcohol. Nontobacco. , is accompanying him. CODE STATUS: DNR, has living will. at bedside confirms. REVIEW OF SYSTEMS: General: Some lightheadedness, not definitely with arising. No headaches, no fa inting, no fever or chills. Eyes: A question of a bit of double vision with present illness, but cu rrently no double vision, no blurred vision, no flashing lights. Ears, nose and throat: No ear pain or drainage. No nasal bleeding. No trouble swallowing. Cardiac: No chest pain, orthopnea or paro xysmal nocturnal dyspnea. Respirations: No cough, wheezing or asthma. Gastrointestinal: No nausea , vomiting, abdominal pain, diarrhea or constipation. Genitourinary: No hematuria or dysuria. Musc uloskeletal: Scant swelling in his legs occasionally. No hugo edema. No pain in his muscles or karly ints at this time. Neurologic: No strokes, seizures or focal weakness. Currently, he did have a re mote stroke in 2008 with no residual. Psychiatric: No anxiety, depression. Skin: No bruise, bleed ing or rash. Heme/Lymph: No tender or swollen lymph nodes in the axilla, inguinal or cervical area. PHYSICAL EXAMINATION: GENERAL: He is an alert, a bit lethargic, but appropriate. VITAL SIGNS: Blood pressure 127/90, pulse 76, respirations 19, room air sat 96% on room air, tempera ture 97.9. HEENT: Examination of his head, eyes, ears, nose and throat reveal pupils are equal and round with i mplants. Extraocular movements are intact. Sclerae are white. Tympanic membranes are clear. Nose is clear. Oral mucous membranes are wet. Dental hygiene is good. NECK: No jugular venous distention, adenopathy or thyromegaly. CHEST: Clear to auscultation and percussion. No focal findings. HEART: Irregularly irregular rhythm with no murmurs, no gallops. First and second heart sounds were variable. ABDOMEN: Soft, bowel sounds are normal. There is no hepatosplenomegaly, no mass, no rebound, no bru its. EXTREMITIES: Reveal no cyanosis, clubbing or edema. PULSES: Carotid, radial, femoral, and dorsalis pedis pulses intact. SKIN: Warm and dry without bruises or rash. HEME/LYMPH: No tender or swollen lymph nodes in axilla, inguinal or cervical area. There is a heali ng scar in the left inguinal area. No petechial hemorrhages. NEUROLOGICAL: Cranial nerves II-XII are intact. Deep tendon reflexes symmetric. IMAGING: Chest x-ray: No cardiomegaly, CHF or infiltrate. He does have some calcifications in the aortic knob, reviewed by me. EKG: atrial fibrillation, controlled ventricular response, nonspecific ST-T abnormality, reviewed by me. LABORATORY DATA: White count 12.5, hemoglobin 17.2, platelet count 156,000. INR 1.6. Toxicology, d igoxin 1.1. Comp metabolic profile is normal except chloride 96, BUN 28, glucose 296. Lactic acid i s 2.3, which is barely outside of the normal range. ADMITTING DIAGNOSES: 1. Dizziness. 2. Ataxia. 3. Atrial fibrillation. 4. Chronic anticoagulation. 5. Hypertension. 6. Dyslipidemia. PLAN: 1. Observation status. 2. Selected home medicines. 3. Thyroid function tests, cortisol today. Repeat CBC, basic metabolic profile in the morning. 4. Orthostatic blood pressure measurements. 5. Decreased Trileptal to 300 mg twice a day, which he was on before he developed the symptoms, it w as raised to 450 mg twice a day a few weeks ago. 6. We will consult his chief hospital administrator. 7. Physical therapy evaluation.
[2017-04-10] MEDS: Atorvastatin Calcium 40 MG TAB PO SCH (20:15)
[2017-04-10] MEDS: OXcarbazepine 300 MG TAB PO SCH (20:16)
[2017-04-10] MEDS ORDERED: Warfarin Sodium 7.5 MG TAB PO SCH (21:00)
[2017-04-11 05:40] LABS: #Lymphocytes 0.9 thou/uL (1.20-3.40); #Monocytes 0.9 thou/uL (0.11-0.59); #Neutrophils 10.5 thou/uL (1.40-6.50); %Basophils 0.1 % (0.0-1.0); %Eosinophils 0.2 % (0.0-10.0); %Lymphocytes 7.4 % (21.0-51.0); %Monocytes 7.4 % (0.0-10.0); Hemoglobin 15.8 g/dL (14.0-18.0); Mean Corpuscular HGB CONC 33.8 g/dL (32.0-36.0); Mean Corpuscular Hemoglobin 33.2 pg (27.0-31.0); Mean Corpuscular Volume 98.1 fl (80.0-94.0); Mean Platelet Volume 8.5 fL (7.4-10.4); Platelet Count 153 thou/uL (130-400); RBC Distribution Width 11.5 % (11.5-14.5); Red Blood Cell (RBC) Count 4.75 mill/uL (4.70-6.10); White Blood Cell (WBC) Count 12.4 thou/uL (4.8-10.8)
[2017-04-11 06:18] LABS: Anion Gap 14 mmol/L (10-20); BUN (Urea Nitrogen) 33 mg/dL (8.4-25.7); Calc. Creatinine Clearance 79 mL/min (70-130); Calcium 9.6 mg/dL (7.8-10.44); Carbon Dioxide 31 mmol/L (23-31); Chloride 98 mmol/L (98-107); Estimated GFR-MDRD 68; Glucose 150 mg/dL (83-110); Potassium 3.4 mmol/L (3.5-5.1); Sodium 140 mmol/L (136-145)
[2017-04-11] MEDS: OXcarbazepine 300 MG TAB PO SCH ×2 (08:17→20:47)
--- NOTE | 2017-04-11 08:20 | PDOC.PN ---
- Subjective Encounter Start Date: 04/11/17 Encounter Start Time: 08:18 Subjective: less ataxic, still some visual disturbance - Objective Resuscitation Status: Resuscitation Status DNR:Do Not Resuscitate Vital Signs & Weight: Vital Signs (12 hours) Temp Pulse Resp BP BP BP BP 04/11/17 03:28 98.3 F 83 16 144/86 H 139/90 144/88 H 04/10/17 23:54 98.1 F 85 16 112/70 Pulse Ox 04/11/17 03:28 96 04/10/17 23:54 93 L Weight Weight 204 lb 6.4 oz I&O: 04/10/17 04/11/17 04/12/17 06:59 06:59 06:59 Intake Total 600 Balance 600 Result Diagrams: 04/11/17 05:19 04/11/17 05:19 Phys Exam - Physical Examination Constitutional: NAD Neck: no JVD Respiratory: clear to auscultation bilateral Cardiovascular: irregular Gastrointestinal: soft, positive bowel sounds Musculoskeletal: no edema Dx/Plan (1) Ataxia Code(s): R27.0 - ATAXIA, UNSPECIFIED Status: Acute (2) Hypothyroidism Code(s): E03.9 - HYPOTHYROIDISM, UNSPECIFIED Status: Acute (3) CAD (coronary artery disease) Code(s): I25.10 - ATHSCL HEART DISEASE OF [place] CORONARY ARTERY W/O ANG PCTRS Status: Acute Qualifiers: Coronary Disease-Associated Artery/Lesion type: [place] artery [place] vs. transplanted heart: [place] heart Associated angina: without angina Qualified Code(s): I25.10 - Atherosclerotic heart disease of [place] coronary artery without angina pectoris (4) Chronic a-fib Code(s): I48.2 - CHRONIC ATRIAL FIBRILLATION Status: Chronic (5) HLD (hyperlipidemia) Code(s): E78.5 - HYPERLIPIDEMIA, UNSPECIFIED Status: Chronic Qualifiers: Hyperlipidemia type: other hyperlipidemia Qualified Code(s): E78.4 - Other hyperlipidemia (6) HTN (hypertension) Code(s): I10 - ESSENTIAL (PRIMARY) HYPERTENSION Status: Acute Qualifiers: Hypertension type: essential hypertension Qualified Code(s): I10 - Essential (primary) hypertension - Plan no orthostatic BP drop -: TSH, T4 low- check FREE T4, T3 -: have reduced trileptal -: Dr Guillen to see * .
[2017-04-11] MEDS ORDERED: Enoxaparin Sodium 40 MG/0.4 ML SYRINGE SC SCH ×2 (09:00→21:00)
[2017-04-11 10:36] LABS: INR-International Normal Ratio 2.1; Prothrombin Time 24.1 SEC (12.0-14.7)
--- NOTE | 2017-04-11 10:49 | CON ---
DATE OF CONSULTATION: 04/11/2017 REASON FOR CONSULTATION: Dizziness, double vision, and history of atrial fibrillation. HISTORY OF PRESENT ILLNESS: Mr. Najera is a 77-year-old gentleman with a history of chronic atria l fibrillation. The patient recently underwent hernia surgery. He had to be taken off the Coumadin, and he was started on Lovenox preoperatively. Postoperatively, he was started back on Coumadin. Th e patient had episodes of dizziness and lightheadedness and some double vision that seemed to be impr oving, get better, but then had recurrent double vision and unsteadiness yesterday, brought back to [facility] emergency room. The patient's Coumadin level still subtherapeutic. No chest pain or pressure. No heaviness or squeezing. No difficulty breathing. PAST MEDICAL HISTORY: 1. Chronic atrial fibrillation. 2. History of coronary disease. 3. Hypercholesterolemia. 4. History of trigeminal neuralgia. ALLERGIES: CODEINE AND SULFA. PAST SURGICAL HISTORY: Left hernia repair on 04/03/2017. FAMILY HISTORY: Negative for bleeding. Negative for heart disease at young age. SOCIAL HISTORY: Rare alcohol, no tobacco. REVIEW OF SYSTEMS: CONSTITUTIONAL: No significant weight gain or loss. VISION: No changes. HEARING: No changes. PULMONARY: No cough or wheezing. GASTROINTESTINAL: No nausea, vomiting, diarrhea. SKIN: No rashes. NEUROLOGIC: No unilateral weakness or numbness. PSYCHIATRIC: No unusual depression or anxiety. PHYSICAL EXAMINATION: GENERAL: This is a pleasant 77-year-old gentleman, in no distress. VITAL SIGNS: Blood pressure 144/86, pulse 80 and irregular. HEENT: Sclerae nonicteric. Mouth mucous membranes moist. NECK: Supple, no lymphadenopathy. LUNGS: Clear. CARDIAC: Irregular, irregular. No murmur, rub or gallop. ABDOMEN: Soft, nontender. EXTREMITIES: No clubbing or cyanosis. There is no edema. Most recent INR yesterday was 1.6. ASSESSMENT: 1. Recurrent double vision and dizziness of uncertain etiology. 2. Coumadin had to be interrupted for surgery. 3. Atrial fibrillation, chronic, rate not controlled. PLAN: 1. Plan at this time it is really not clear what caused his symptoms, but concern that this could patricio ve been a very small embolic event from having to be off Coumadin. 2. Discussed changing to one of the newer anticoagulants not such as Eliquis or Xarelto. The patien t prefers not to do that at this point. 3. Continue diltiazem at current dose. 4. We will give Lovenox 40 mg q.12 h., until we get another protime. 5. Resume digoxin tomorrow. We will be glad to follow with you.
[2017-04-11 12:48] LABS: Free T4 (Free Thyroxine) 0.64 ng/dL (0.70-1.48)
--- NOTE | 2017-04-11 17:44 | PDOC.EVN ---
Event Note - Event Note Event Note: DC PREPARED, notified HR in 40s. DC cancelled. T4,T3, TSH low- start levothyroxine 25 mcg daily
[2017-04-11] MEDS ORDERED: Levothyroxine Sodium 25 MCG TAB PO SCH (17:45)
--- NOTE | 2017-04-11 20:14 | DIS ---
DATE OF ADMISSION: 04/10/2017 DATE OF DISCHARGE: 04/11/2017 PRIMARY CARE PROVIDER: Ronnie Banegas M.D. DISCHARGE DISPOSITION: Discharged home. FINAL DIAGNOSES: Ataxia likely related to Trileptal, hypothyroidism, atrial fibrillation controlled, hypertension, trigeminal neuralgia, coronary artery disease, chronic anticoagulation, dyslipidemia. DISCHARGE MEDICATIONS: Coumadin 7.5 mg at bedtime, diltiazem 240 mg a day, atorvastatin 40 mg a day, Zetia 10 mg a day, Klor-Con 10 mEq a day, Lasix 20 mg a day, digoxin 0.25 mg a day, Protonix 40 mg a day, losartan 100 mg a day, Trileptal 300 mg twice a day, levothyroxine 25 mcg a day. ALLERGIES: CODEINE and SULFA. CODE STATUS: FULL. PENDING AT TIME OF DISCHARGE: Nothing. HOSPITAL COURSE: The patient was referred to the Hospitalist Service with vertigo, but the patient h as not had vertigo. The patient has had ataxia with some occasional visual disturbance and careful h istory; this began after his Trileptal was increased from 300 twice a day to 450 twice a day for his trigeminal neuralgia. The patient had been in the hospital the previous week and had a normal CAT sc an, normal MRI, and normal carotid Doppler. The patient's Trileptal was decreased to 300 mg twice a day. His initial INR was 1.6 but is 2.1 today. CBCs showed a mild elevation of white count at 12.5, hemoglobin 17.2, platelet count 156,000. Comp metabolic profile was unremarkable except for a BUN o f 28 and a chloride of 96 and initial lactic acid borderline abnormal at 2.6, instead his TSH was low at 0.13. His free T3 was low at 1.17, low normal is 1.71. His free T4 was low at 0.64, normal is 0 .7 low normal. The patient is being discharged on his usual home medicines except for the Trileptal. He was evaluated by Physical Therapy and walked without difficulty forwards and backwards. He init ially has complained of some occasional double vision, this has resolved. 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 This will need to be adjusted as needed by his primary care doctor over the next few weeks. A cortis ol was also obtained, which is actually somewhat high at 51. A consultation was obtained with Dr. Yonny hood who continued his usual medications for his atrial fibrillation, etc. Orthostatic blood pressur e measurements were done and the patient consistently had no orthostatic drop. He is being discharge d for followup with Dr. Banegas in 1 week. No procedures were done.
[2017-04-11] MEDS: Atorvastatin Calcium 40 MG TAB PO SCH (20:47)
[2017-04-11] MEDS ORDERED: Warfarin Sodium 7.5 MG TAB PO SCH (21:00)
[2017-04-11] MEDS ORDERED: Losartan Potassium 25 MG TAB PO SCH (21:00)
[2017-04-12 05:47] LABS: INR-International Normal Ratio 2.5; Prothrombin Time 27.8 SEC (12.0-14.7)
[2017-04-12 07:47] VITALS: TEMP 97.7
[2017-04-12] MEDS: OXcarbazepine 300 MG TAB PO SCH (08:32)
[2017-04-12] MEDS ORDERED: Digoxin 0.125 MG TAB PO SCH (09:00)
[2017-04-12 11:49] VITALS: BP 121/80
[2017-04-12] MEDS ORDERED: Levothyroxine Sodium 25 MCG TAB PO SCH (12:00)
--- NOTE | 2017-04-12 12:10 | DIS ---
DATE OF ADMISSION: 04/10/2017 DATE OF DISCHARGE: 04/12/2017 PRIMARY CARE PROVIDER: Dr. Joseph. DISCHARGE DISPOSITION: Home. FINAL DIAGNOSES: Ataxia related to Trileptal dose, atrial fibrillation, hypothyroidism, dyslipidemia , hypertension, coronary artery disease. MEDICATIONS: Same as in previous dictation except the digoxin has been stopped. HOSPITAL COURSE: The patient at the time of planned discharge had episodes of asymptomatic bradycard ia. This was discussed with Dr. Guillen. His digoxin was stopped today. His rhythm is stable. He h as no orthostatic drop and no bradycardia. He is being discharged for followup early next week with Dr. Joseph. He has been asked to go to Coumadin clinic tomorrow. The remainder of the discharge valiente mmary dictated yesterday applies.
--- NOTE | 2017-04-12 13:17 | PRG ---
DATE OF SERVICE: 04/12/2017 SUBJECTIVE: Mr. Najera is doing better today. He says his dizziness is better. He is not having double vision now. Overall, feeling much better. OBJECTIVE: VITAL SIGNS: Blood pressure 120/80, pulse 60-70, irregularly irregular. LUNGS: Clear. CARDIAC: Irregularly irregular. ABDOMEN: Soft, nontender. PERTINENT LABORATORY: His INR is now 2.5. ASSESSMENT: 1. Dizziness and double vision of uncertain etiology, ? small transient ischemic attack. 2. Chronic atrial fibrillation. 3. He did receive additional digoxin while here. Apparently he did get doses of digoxin 0.25, but g ot bradycardic with that. PLAN: 1. Resume digoxin at previous dose 0.125 mg a day on 04/16/2017. 2. He will back and see me in about 3 weeks. 3. He is following up with Coumadin Clinic tomorrow. 4. He has been started on levothyroxine for his hypothyroid.
== END 2017-04-12 13:13 | disposition home or self-care (01) ==
LOC: ERS 08:54 → 2SE 12:26
PROVIDERS: ADMIT Internal Medicine; ATTEND Internal Medicine
DX: R27.0 Ataxia, unspecified (principal); I48.2 Chronic atrial fibrillation; E03.9 Hypothyroidism, unspecified; E78.5 Hyperlipidemia, unspecified; I10 Essential (primary) hypertension; I25.10 Atherosclerotic heart disease of native coronary artery without angina pectoris; Z88.5 Allergy status to narcotic agent; Z88.2 Allergy status to sulfonamides; Z79.01 Long term (current) use of anticoagulants; Z98.890 Other specified postprocedural states
CPT/HCPCS: 70450; 71010; 80048; 80162; 82533; 82550; 82553; 83605; 84436; 84439; 84479; 84481; 84484; 85025; 85610 ×3; 85730; 93005; 94760; 96372; 96374; 96375; 97116; 97139 ×3; 99285; G0378; G8978; G8979; G8980; 36415; 80053; 84443; J1100; J1650; J2060

== ENCOUNTER 2018-07-30 10:07 | Outpatient (CLI) | payer MEDICARE, OTHER ==
[2018-07-30] MEDS ORDERED: Gadobenate Dimeglumine 529 MG/1 ML (20ML VIAL) ONE (10:31)
--- NOTE | 2018-07-30 14:00 | MRI ---
MRI Brain W WO Con: 07/30/2018 12:00 AM CLINICAL HISTORY: Right hemifacial pain. COMPARISON: None. FINDINGS: Extra axial spaces: There is prominence of the subarachnoid space due to mild global atrophy. Hemorrhage: None. Ventricular system: Mild compensatory dilatation. Basal cisterns: Free from mass affect. Cerebral parenchyma: Microvascular ischemic changes. Midline shift: None. Cerebellum: Bilateral remote lacunar infarctions Brainstem: Normal. Paranasal sinuses:Mild mucosal thickening Postcontrast imaging reveals no evidence of a pathologically enhancing intra-axial mass. Thin linear enhancement is seen traversing the course of the right 5th cranial nerve. IMPRESSION:Thin linear enhancement of the right 5th cranial nerve. This indicates an inflammatory gold ropathy. Recommend short-term imaging follow-up to confirm expected resolution.
== END 2018-07-30 10:08 | disposition home or self-care (01) ==
LOC: BICMRI 10:07
PROVIDERS: ATTEND Psychiatry & Neurology Neurology
DX: G50.0 Trigeminal neuralgia (principal); G62.9 Polyneuropathy, unspecified
CPT/HCPCS: 70553; 82565; A9577

== ENCOUNTER 2019-04-15 08:58 | Observation (INO) | payer MEDICARE, OTHER ==
[2019-04-15 09:30] LABS: #Eosinphils 0.1 thou/uL (0.0-0.7); #Lymphocytes 1.4 thou/uL (1.20-3.40); #Monocytes 0.5 thou/uL (0.11-0.59); #Neutrophils 3.7 thou/uL (1.40-6.50); %Basophils 0.8 % (0.0-1.0); %Eosinophils 1.6 % (0.0-10.0); %Lymphocytes 23.8 % (21.0-51.0); %Monocytes 9.3 % (0.0-10.0); %Neutrophils 64.4 % (42.0-75.0); Hemoglobin 17.1 g/dL (14.0-18.0); Mean Corpuscular HGB CONC 32.6 g/dL (32.0-36.0); Mean Corpuscular Hemoglobin 32.2 pg (27.0-31.0); Mean Corpuscular Volume 98.8 fL (78.0-98.0); Mean Platelet Volume 8.8 fL (7.4-10.4); Platelet Count 122 thou/uL (130-400); RBC Distribution Width 11.7 % (11.5-14.5); Red Blood Cell (RBC) Count 5.32 mill/uL (4.70-6.10); White Blood Cell (WBC) Count 5.8 thou/uL (4.8-10.8)
--- NOTE | 2019-04-15 09:40 | RAD ---
XR Chest 1 View Portable HISTORY: Dizziness and lightheadedness. COMPARISON: 04/10/2017 FINDINGS: The heart size is at upper limits of normal. The aorta is tortuous. The lungs are well expa nded without focal areas of consolidation, pneumothorax or pleural effusions. IMPRESSION: No radiographic evidence of acute cardiopulmonary process.
[2019-04-15 09:53] LABS: ALT (SGPT) 25 U/L (8-55); AST (SGOT) 22 U/L (5-34); Albumin 4.3 g/dL (3.4-4.8); Alkaline Phosphatase 102 U/L (40-110); Anion Gap 12 mmol/L (10-20); BUN (Urea Nitrogen) 22 mg/dL (8.4-25.7); Bilirubin, Total 0.8 mg/dL (0.2-1.2); Calc. Creatinine Clearance 0 mL/min (70-130); Calcium 8.7 mg/dL (7.8-10.44); Carbon Dioxide 30 mmol/L (23-31); Chloride 103 mmol/L (98-107); Estimated GFR-MDRD 66; Glucose 221 mg/dL (83-110); Potassium 4.3 mmol/L (3.5-5.1); Protein, Total 6.3 g/dL (5.8-8.1); Sodium 141 mmol/L (136-145)
[2019-04-15 11:35] LABS: Digoxin 1.02 ng/mL (0.8-2.0)
[2019-04-15 12:57] LABS: Troponin I 0.021 ng/mL (< 0.028)
[2019-04-15] MEDS ORDERED: Acetaminophen 325 MG TAB PO PRN (13:28)
[2019-04-15] MEDS ORDERED: Ondansetron PF 4 MG/2 ML Vial IVP PRN (13:28)
[2019-04-15 13:30] VITALS: BMI 29.9
--- NOTE | 2019-04-15 13:40 | PDOC.HHP ---
Hospitalist HPI - History of Present Illness Lightheadedness and blood pressure variability at home History of Present Illness: Mr. Najera is a 79 y/o gentleman with PMH of HTN, T2DM (newly diagnosed), atrial fibrillation on anticoagulation, trigeminal neuralgia, who presents to the ED with episodes of lightheadness and double vision. He states that he has been feeling these symptoms for the past 2 weeks. Notes that at times he feels "woozy" and usually cannot see in front of him very well. This time it happened to him while he was driving and he felt the need to taffy puller and stop driving. Thats when him and his decided to come to the ED. He notes that this happens with his blood pressure when it goes very high. He recently had stopped a blood pressure medication because he states it is now off market. 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 He denies any fainting spells or loss of conciousness but states he feels like he is about to faint. Additionally, he has started a new exercise program for his newly diagnosed T2DM and is working with a personal injury law specialist. He states he does not feel dehydrated or that he is drinking less water. Denies fever, chills, nausea, vomiting, dysuria, cp, sob, ab pain, or other associated sxs. Hospitalist ROS - Review of Systems Constitutional: denies: fever, chills, sweats, weakness, malaise, other Eyes: denies: pain, vision change, conjunctivae inflammation, eyelid inflammation, redness, other ENT: denies: ear pain, ear discharge, nose pain, nose discharge, nose congestion , mouth pain, mouth swelling, throat pain, throat swelling, other Respiratory: denies: cough, dry, shortness of breath, hemoptysis, SOB with excertion, pleuritic pain, sputum, wheezing, other Cardiovascular: denies: chest pain, palpitations, orthopnea, paroxysmal noc. dyspnea, edema, light headedness, other Gastrointestinal: denies: nausea, vomiting, abdominal pain, diarrhea, constipation, melena, hematochezia, other Genitourinary: denies: dysuria, frequency, incontinence, hematuria, retention, other Musculoskeletal: denies: neck pain, shoulder pain, arm pain, back pain, hand pain, leg pain, foot pain, other Skin: denies: rash, lesions, frank, bruising, other Neurological: denies: weakness, numbness, incoordination, change in speech, confusion, seizures, other - Medication Medications: Medication Instructions Recorded Confirmed Type Pantoprazole [Protonix] 40 mg PO DAILY 04/08/13 04/15/19 History Acetaminophen [Tylenol Extra 1 tab PO Q6HR PRN 08/18/14 04/15/19 History Strength] Atorvastatin Calcium [Lipitor] 40 mg PO HS 08/18/14 04/15/19 History Juice Plus 8 tab PO DAILY 10/22/14 04/10/17 History Ezetimibe [Zetia] 10 mg PO HS 03/27/17 04/15/19 History Potassium Chloride [Klor-Con 10] 10 meq PO DAILY 03/27/17 04/15/19 History Levothyroxine Sodium 25 mcg PO DAILY #30 tablet 04/11/17 04/15/19 Rx Apixaban [Eliquis] 5 mg PO BID 04/15/19 04/15/19 History Digoxin [Lanoxin] 0.125 mg PO DAILY 04/15/19 04/15/19 History Diltiazem HCl [Cartia XT] 240 mg PO DAILY 04/15/19 04/15/19 History OXcarbazepine [Trileptal] 600 mg PO DAILY 04/15/19 04/15/19 History OXcarbazepine [Trileptal] 900 mg PO HS 04/15/19 04/15/19 History Olmesartan Medoxomil [Benicar] 40 mg PO DAILY 04/15/19 04/15/19 History Torsemide [Demadex] 20 mg PO 1200 04/15/19 04/15/19 History Valsartan [Diovan] 160 mg PO HS 04/15/19 04/15/19 History cloNIDine HCl 0.1 mg PO SEEPHYS PRN 04/15/19 04/15/19 History Hospitalist History - Past Medical History Source: patient, family Cardiac: reports: AFIB, HTN Pulmonary: reports: no pertinent history 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: TIA, Other (Trigeminal neuralgia) Gastrointestinal: reports: no pertinent history Heme/Onc: reports: no pertinent history Hepatobiliary: reports: no pertinent history Psych: reports: no pertinent history Musculoskeletal: reports: no pertinent history Rheumatologic: reports: no pertinent history Infectious Disease: reports: no pertinent history ENT: reports: no pertinent history Renal/: reports: no pertinent history Endocrine: reports: no pertinent history Dermatology: reports: no pertinent history - Past Surgical History Past Surgical History: reports: Appendectomy, Hernia Repair, Total Knee Replacement - Family History Family History: reports: hypertension - Social History Smoking Status: Never smoker Alcohol: reports: None Drugs: reports: none Living Situation: With Family Activity level: independent ambulation - Exam General Appearance: NAD, awake alert Eye: PERRL, anicteric sclera ENT: normocephalic atraumatic, no oropharyngeal lesions, moist mucosa Neck: supple, symmetric, no JVD, no thyromegaly, no lymphadenopathy, no carotid bruit Heart: RRR, no murmur, no gallops, no rubs, normal peripheral pulses Respiratory: CTAB, no wheezes, no rales, no ronchi, normal chest expansion, no tachypnea, normal percussion Gastrointestinal: soft, non-tender, non-distended, normal bowel sounds, no palpable masses, no hepatomegaly, no splenomegaly, no bruit Extremities: no cyanosis, no clubbing, no edema Skin: normal turgor, no lesions, no rashes Neurological: cranial nerve grossly intact, normal sensation to touch, no weakness, no focal deficits, no new deficit Musculoskeletal: normal tone, normal strength, no muscle wasting Psychiatric: normal affect, normal behavior, A&O x 3 Hospitalist Results - Labs Result Diagrams: 04/15/19 09:10 04/15/19 09:10 Lab results: WBC 5.8 thou/uL (4.8-10.8) 04/15/19 09:10 Hgb 17.1 g/dL (14.0-18.0) 04/15/19 09:10 Hct 52.5 % (42.0-52.0) H 04/15/19 09:10 MCV 98.8 fL (78.0-98.0) H 04/15/19 09:10 Plt Count 122 thou/uL (130-400) L 04/15/19 09:10 Neutrophils % 64.4 % (42.0-75.0) 04/15/19 09:10 Sodium 141 mmol/L (136-145) 04/15/19 09:10 Potassium 4.3 mmol/L (3.5-5.1) 04/15/19 09:10 Chloride 103 mmol/L (98-107) 04/15/19 09:10 Carbon Dioxide 30 mmol/L (23-31) 04/15/19 09:10 BUN 22 mg/dL (8.4-25.7) 04/15/19 09:10 Creatinine 1.09 mg/dL (0.7-1.3) 04/15/19 09:10 Glucose 221 mg/dL (83-110) H 04/15/19 09:10 Calcium 8.7 mg/dL (7.8-10.44) 04/15/19 09:10 Total Bilirubin 0.8 mg/dL (0.2-1.2) 04/15/19 09:10 AST 22 U/L (5-34) 04/15/19 09:10 ALT 25 U/L (8-55) 04/15/19 09:10 Alkaline Phosphatase 102 U/L (40-110) 04/15/19 09:10 Troponin I 0.021 ng/mL (< 0.028) 04/15/19 12:22 Serum Total Protein 6.3 g/dL (5.8-8.1) 04/15/19 09:10 Albumin 4.3 g/dL (3.4-4.8) 04/15/19 09:10 Additional comment: VITAL SIGNS [facility] Apr 15, 2019 11:44 SIMÓN Chen Britney BP: 138/93, Pulse: 84, Resp: 17, Temp: 98.2 (Oral), Pain: 0, O2 sat: 100 on ( Room Air), Time: 04/15/2019 11:44. 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 AND LIGHTHEADED- DENIES DIZZINESS - EKG Interpretation EK lead EKG shows, Rate (beats per minute): 81, Atrial fibrillation, QRS duration 104ms - Radiology Interpretation Chest x-ray Status: report reviewed by me Hospitalist H&P A/P - Problem (1) Pre-syncope Status: Acute (2) Uncontrolled hypertension Code(s): I10 - ESSENTIAL (PRIMARY) HYPERTENSION Status: Acute (3) Atrial fibrillation Code(s): I48.91 - UNSPECIFIED ATRIAL FIBRILLATION Status: Chronic (4) Chronic anticoagulation Code(s): Z79.01 - SKILLED NURSING (CURRENT) USE OF ANTICOAGULANTS Status: Chronic (5) Type 2 diabetes mellitus Status: Chronic (6) Trigeminal neuralgia Code(s): G50.0 - TRIGEMINAL NEURALGIA Status: Chronic - Plan Plan: Admit to tele obs Continue air sampling and monitoring He sees Dr. Guillen in the outpatient, recent changes to blood pressure medication have been made and he was started on diuretic. Will consult cardio team and request records to see what changes have been made Orthostatics appear negative from ED, however would repeat and continue with gentle hydration of NS @ 75ml/hr. Given recent diuretic use and starting a new exercise program, orthostatic change could be at play History of PAF, continue his home meds and anticoagulation, obtain echocardiogram to r/o cardiac structural problems Heart healthy diet Continue other home meds DVT Prophyalxis: On AC Code status: Full ACP: is surrogate decision maker Disposition: Admit to obs. Workup of presynope/lightheadedness
[2019-04-15 15:48] LABS: Troponin I 0.021 ng/mL (< 0.028)
[2019-04-15] MEDS: Sodium Chloride 0.9% 1,000 ML IV SCH (16:06)
[2019-04-15] MEDS: Apixaban 5 MG TAB PO SCH (20:49)
[2019-04-15] MEDS ORDERED: Atorvastatin Calcium 40 MG TAB PO SCH (21:00)
[2019-04-15] MEDS ORDERED: OXcarbazepine 300 MG TAB PO SCH (21:00)
[2019-04-15] MEDS ORDERED: Valsartan 80 MG TAB PO SCH (21:00)
[2019-04-15] MEDS ORDERED: Ezetimibe 10 MG TAB PO SCH (21:00)
[2019-04-15 22:58] LABS: Hemoglobin 15.4 g/dL (14.0-18.0); Platelet Count 116 thou/uL (130-400)
--- NOTE | 2019-04-16 00:31 | CON ---
DATE OF CONSULTATION: 04/15/2019 INDICATION FOR CONSULTATION: A 79-year-old gentleman with chronic atrial fibrillation, who has been complaining of some lightheadedness and not feeling well. HISTORY OF PRESENT ILLNESS: This is a 79-year-old gentleman, who has chronic atrial fibrillation and followed by Dr. Guillen for quite some time. He actually was seen about 2 years ago in [address] Guillen also in March. At that time, he was complaining of some double vision, lightheadedness, and said he just did not feel right. No significant abnormalities were noted at that time. At this time, he again presents after saying he did not feel very well. He started around 8 o'clock this morning. He said he felt somewhat disoriented. He could not describe exactly how he felt, but said he felt lightheaded and just did not feel right. He felt uncomfortable driving and said he felt somewhat mildly disoriented. He then presented to the emergency room. Evaluation thus far has been relatively unremarkable. His blood pressure was on the high side. He has had recent changes in his medications on April 04. He was started on olmesartan 40 mg a day as well as clonidine p.r.n. for hypertension over 160 or 170 systolic. The valsartan he had previously been on was discontinued and he feels that some of his problems may be contributable to his medications, but it appears that most likely he had already had some problems back in 2016 prior to starting the new medications, either the valsartan or the olmesartan. His blood pressure at this time is still somewhat elevated, but orthostatics were obtained and we asked them to repeat this, his lying blood pressure was 134/82 and the standing blood pressure was 177/87. He has chronic atrial fibrillation. He also had apparently some problems with atrial flutter and underwent ablation of atrial flutter in 2008 and since that time, there has been no indication that he has had any atrial flutter performed. also says that he has been sleeping more than usual. He also went bowling on Sunday night and at that time he felt somewhat uncomfortable and felt somewhat unsteady. His said this has been ongoing problem for some time, but just recently seems to be perhaps a little bit worse. He denied any chest pain or shortness of breath. PAST MEDICAL HISTORY: Significant for chronic atrial fibrillation. He has had atrial flutter ablation. He has a history of coronary artery disease per the patient. He has a history of hypercholesterolemia. He has had a left arm distal fracture. He has had a right arm surgery. His right hand 5th digit had some surgery also. He has had cataract surgery with lens implants. He has a history of bilateral knee replacements. He has had right eye surgery, retinal surgery. He has had a spinal meningitis at age 12. He has a history of trigeminal neuralgia, for which he takes Trileptal. He has had back surgeries in 1986. He has had appendectomy. He has had a hernia repair. SOCIAL HISTORY: He is . He has no alcohol or tobacco abuse. He has 2 children. No heart disease. FAMILY HISTORY: His father of cancer. His mother has hypertension. ALLERGIES: HE IS ALLERGIC TO CODEINE AND SULFA. MEDICATIONS: Include; 1. Lipitor. 2. Protonix. 3. Potassium. 4. Zetia. 5. Levothyroxine. 6. Demadex. 7. Digoxin. 8. Trileptal. 9. Eliquis. 10. Diltiazem. 11. Clonidine. 12. Benicar. 13. Olmesartan. REVIEW OF SYSTEMS: He wears glasses for reading. He has had the lens implants after cataract surgery. Otherwise, his 12-point review of systems unremarkable except for what was noted in the history of present illness. He did complain of some left foot disorder with a corn on the bottom of his foot, which has been somewhat nuisance to him, but this has occurred after he has had some foot problems with walking after he has had spinal meningitis since age 12. Otherwise, his 12-point review of systems is unremarkable except what is noted in the history of present illness. PHYSICAL EXAMINATION: GENERAL: Reveals a well-developed, well-nourished, very pleasant gentleman. VITAL SIGNS: Blood pressure is stable at 131/82 while lying. Temperature is 97.6, heart rate 72, respiratory rate 16, O2 saturation 95%. HEENT: Reveals the head to be normocephalic and atraumatic. HEART: Carotid pulses are present. I did not hear any bruits. CHEST: Clear to auscultation. There were no rales, rhonchi, or wheezing. CARDIOVASCULAR: Reveals a somewhat irregular rhythm. I do not hear any gross murmurs. There were no heaves or thrills noted. ABDOMEN: Shows obesity with positive bowel sounds. No organomegaly or masses were noted. Femoral pulses are present. EXTREMITIES: Showed no clubbing, cyanosis, or edema. Pedal pulses are also present. NEUROLOGIC: The patient appears to be fully intact. I cannot elicit any gross focal motor deficits. DIAGNOSTIC DATA: His EKG shows an atrial fibrillation, but no acute changes otherwise. LABORATORY DATA: Shows a hemoglobin of 17.1 with a hematocrit of 52.5, WBC of 5.8. His potassium was 4.3, BUN was 22, creatinine 1.09. Blood sugar was 221. IMPRESSION: 1. Presyncopal episodes with associated lightheadedness of uncertain etiology. We will try to review his medication and see whether or not this has played a role in this. Certainly the Trileptal may have some side effects and may be causing some of his issues. 2. Atrial fibrillation. He is on oral anticoagulation in the form of Eliquis. We will continue this medicine. 3. Hypertension. We will need to maybe adjust some of his medications and may need to try a whole different class of medications and he may not be able to tolerate the ARBs. I am not certain, but this may be the cause for some of his symptoms, but we will need to review these medication and see if there was any possible side effects. 4. What appears to be diabetes. I believe he is on medications for this already. He had been on metformin I believe, uncertain about this. We will need to review that also. 5. Trigeminal neuralgia, this will be dealt with by the primary care service. 6. Please note also he did have an echocardiogram performed today, which shows an ejection fraction of 55% to 60% with mild left atrial dilatation, mild mitral and tricuspid valve regurgitation. Obviously he has atrial fibrillation. Also noted was a small patent foramen ovale, or either an atrial septal defect with a [id number] shunt. This is actually a coincidental finding and does not appear to be the etiology, but we will need to keep this in mind if he is having some small embolization from the PFO, if he has reversal of the shunt for whatever reason due to cough or something like this, if he has reversal and had some debris that may have caused a small embolization to the brain. I do not know if he has had a recent MRI, but this may also be indicated in this patient who continues to have episodes of lightheadedness and some other neurologic events. We will continue to follow the patient with you and we will try to adjust medications if indicated. Job ID: [id number]
[2019-04-16] MEDS: Sodium Chloride 0.9% 1,000 ML IV SCH (05:01)
[2019-04-16 05:38] LABS: #Eosinphils 0.1 thou/uL (0.0-0.7); #Lymphocytes 1.5 thou/uL (1.20-3.40); #Monocytes 0.6 thou/uL (0.11-0.59); #Neutrophils 3.6 thou/uL (1.40-6.50); %Basophils 0.7 % (0.0-1.0); %Eosinophils 1.7 % (0.0-10.0); %Lymphocytes 26.1 % (21.0-51.0); %Monocytes 9.5 % (0.0-10.0); %Neutrophils 62.1 % (42.0-75.0); Hemoglobin 15.2 g/dL (14.0-18.0); Mean Corpuscular HGB CONC 32.6 g/dL (32.0-36.0); Mean Corpuscular Hemoglobin 32.3 pg (27.0-31.0); Platelet Count 114 thou/uL (130-400); RBC Distribution Width 11.6 % (11.5-14.5); Red Blood Cell (RBC) Count 4.72 mill/uL (4.70-6.10); White Blood Cell (WBC) Count 5.8 thou/uL (4.8-10.8)
[2019-04-16 05:46] LABS: Anion Gap 11 mmol/L (10-20); BUN (Urea Nitrogen) 19 mg/dL (8.4-25.7); Calc. Creatinine Clearance 97 mL/min (70-130); Calcium 8.5 mg/dL (7.8-10.44); Carbon Dioxide 28 mmol/L (23-31); Chloride 109 mmol/L (98-107); Estimated GFR-MDRD 87; Glucose 112 mg/dL (83-110); Potassium 3.9 mmol/L (3.5-5.1); Sodium 144 mmol/L (136-145)
[2019-04-16] MEDS ORDERED: Digoxin 0.125 MG TAB PO SCH (09:00)
[2019-04-16] MEDS ORDERED: OXcarbazepine 300 MG TAB PO SCH (09:00)
[2019-04-16] MEDS ORDERED: Losartan 25 MG TAB PO SCH (09:00)
[2019-04-16] MEDS ORDERED: Potassium Chloride 10 MEQ TAB PO SCH (09:00)
[2019-04-16] MEDS: Apixaban 5 MG TAB PO SCH (09:54)
--- NOTE | 2019-04-16 10:11 | PDOC.CPN ---
- Subjective Date: 04/16/19 Time: 10:20 Interval history: The pt seen and examined. No overnight events. No cardiac complaints. He has not had any lightheadedness or double vision since this admission - Objective Allergies/Adverse Reactions: Allergies Allergy/AdvReac Type Severity Reaction Status Date / Time codeine Allergy HALLUCINATI Verified 03/27/17 10:43 ONS Sulfa (Sulfonamide Allergy Verified 03/27/17 10:43 Antibiotics) Visit Medications: Current Medications Acetaminophen (Tylenol) 650 mg PO Q4H PRN PRN Reason: Headache/Fever/Mild Pain (1-3) Apixaban (Eliquis) 5 mg PO BID [facility] Last Admin: 04/16/19 09:54 Dose: 5 mg Atorvastatin Calcium (Lipitor) 40 mg PO HS [facility] Last Admin: 04/15/19 20:48 Dose: 40 mg Digoxin (Lanoxin) 0.125 mg PO DAILY [facility] Last Admin: 04/16/19 09:55 Dose: 0.125 mg Diltiazem HCl (Cardizem Cd) 240 mg PO DAILY [facility] Last Admin: 04/16/19 09:54 Dose: 240 mg Ezetimibe (Zetia) 10 mg PO HS [facility] Last Admin: 04/15/19 20:49 Dose: 10 mg Sodium Chloride (Normal Saline 0.9%) 1,000 mls @ 70 mls/hr IV .[id number] [facility] Last Admin: 04/16/19 05:01 Dose: 1,000 mls Levothyroxine Sodium (Synthroid) 25 mcg PO 0600 [facility] Losartan Potassium (Cozaar) 100 mg PO DAILY [facility] Last Admin: 04/16/19 09:55 Dose: 100 mg Ondansetron HCl (Zofran) 4 mg IVP Q6H PRN PRN Reason: Nausea/Vomiting Oxcarbazepine (Trileptal) 900 mg PO HS [facility] Last Admin: 04/15/19 20:48 Dose: 900 mg Oxcarbazepine (Trileptal) 600 mg PO DAILY [facility] Last Admin: 04/16/19 10:02 Dose: 600 mg Pantoprazole Sodium (Protonix) 40 mg PO DAILY [facility] Last Admin: 04/16/19 09:55 Dose: 40 mg Potassium Chloride (Klor-Con 10) 10 meq PO DAILY [facility] Last Admin: 01/01/20 09:54 Dose: 10 meq Sodium Chloride (Flush - Normal Saline) 10 ml IVF PRN PRN PRN Reason: Saline Flush Valsartan (Diovan) 160 mg PO HS [facility] Last Admin: 04/15/19 20:48 Dose: 160 mg Vital Signs & Weight: Vital Signs Temp Pulse Resp BP BP BP BP 04/16/19 10:02 170/94 H 192/97 H 04/16/19 09:55 86 04/16/19 09:54 86 04/16/19 08:55 86 148/93 H 04/16/19 07:49 97.8 F 80 20 175/105 H 04/16/19 05:00 70 18 112/62 04/15/19 23:24 98.7 F 60 16 109/62 BP Pulse Ox 04/16/19 10:02 165/93 H 04/16/19 09:55 04/16/19 09:54 04/16/19 08:55 04/16/19 07:49 95 04/16/19 05:00 96 04/15/19 23:24 96 Weight 208 lb 6.4 oz - Physical Exam General: alert & oriented x3 HEENT: mucus membranes moist Neck: supple neck Cardiac: irregularly regular Lungs: clear to auscultation - Labs Result Diagrams: 04/16/19 05:01 04/16/19 05:01 Troponin/CKMB Troponin I 0.021 ng/mL (< 0.028) 04/15/19 15:18 - Telemetry Supraventricular conduction: atrial fibrillation - Assessment/Plan Assessment/Plan: 1. Pre-syncope episodes with lightheadedness and double vision - Orthostatic BP is stable this AM; May need to stop Trileptal; 2. Chronic Afib - well controlled HR; on Eliquis and Digoxin 3. HTN - will start Coreg 3.125mg BID for HTN and AFib management 4. DM 5. Trigeminla neuralgia - 6. PFO with L->R Shunt - On Eliquis; may need MRI for further eval 7. Hypothyroidism MAR reviewed * Dr. Guillen's pt * Echo on 04/15/2019 with EF 55-60%, mild MR and TR, mild AV sclerosis, PFO with L->R shunt, and chronic AFib. * if the pt does not have any symptoms, the pt will wear EVR at home (EVR will be mailed to the pt's address from Dr Guillen's office) <Discharge med in 2017> New med: Trileptal 300mg BID, Levothyroxine 25mcg cont. med: Losartan 100mg at HS, [place], Lipitor 40mg qd, Lasix 20mg qd with Kcl, Zetia, Diltiazem 240mg qd D/c med: Digoxin 0.25mg qd; Trileptal 450mg BID, HCTZ 25mg qd
[2019-04-16] MEDS ORDERED: Carvedilol 3.125 MG TAB PO SCH ×2 (11:15→17:00)
[2019-04-16 12:39] VITALS: TEMP 98.1
[2019-04-16 12:55] VITALS: BP 168/98
--- NOTE | 2019-04-16 16:38 | PDISCHARGE ---
Discharge - Disposition Disposition: HOME - Ambulatory Orders Prescriptions: Carvedilol [Coreg] 3.125 mg PO BID-WM 30 Days #60 tab - Patient Instructions Pre-Printed Education: How to Take Your Blood Pressure, [id number], Near- Syncope, [id number], Hypertension, [id number], Ambulatory Cardiac Monitoring Care Plan Goals: FOCUS: Transition from Acute Care after Discharge GOAL: Successful transition to care in the community YOUR TASKS: (1) review all information outlined in your discharge packet (2) follow any instructions outlined in your discharge packet (3) contact your primary care provider if you have questions or need additional assistance - Referrals and PCP Follow-Up Referrals and PCP Follow-Up: Ronnie Banegas MD [Primary Care Provider] - 7 Days Ahmet Stewart MD [Active] - 7 Days Flash Guillen MD [Active] - (PLEASE CALL TOMORROW FOR EVEN MONITOR. ) - Nourishment Instructions Nourishment:: Heart Healthy Diet Course - Course Orders, Labs, Meds: Patient admitted for pre-syncope. Cardiac workup including echo unremarkable. Patient has uncontrolled HTN at home and is on trileptal for trigeminal neuralgia. Cardilogy team to start b-benoit at low dose. Likely sypmtoms related to medication trileptal or uncontrolled hypertension. Will require follow up with his neurologist and outcomes manager in the outpatient. Patient at time of discharge, was no longer having symptoms. Patient understood plan and questions were answered. Hospitalist H&P A/P - Problem (1) Pre-syncope Status: Acute (2) Uncontrolled hypertension Code(s): I10 - ESSENTIAL (PRIMARY) HYPERTENSION Status: Acute (3) Atrial fibrillation Code(s): I48.91 - UNSPECIFIED ATRIAL FIBRILLATION Status: Chronic (4) Chronic anticoagulation Code(s): Z79.01 - DETENTION (CURRENT) USE OF ANTICOAGULANTS Status: Chronic (5) Type 2 diabetes mellitus Status: Chronic (6) Trigeminal neuralgia Code(s): G50.0 - TRIGEMINAL NEURALGIA Status: Chronic
[2019-04-17] MEDS ORDERED: Levothyroxine Sodium 25 MCG TAB PO SCH (06:00)
== END 2019-04-16 14:05 | disposition home or self-care (01) ==
LOC: ERS 08:58 → 2SW 11:30
PROVIDERS: ADMIT Internal Medicine; ATTEND Internal Medicine
DX: R55 Syncope and collapse (principal); R42 Dizziness and giddiness; I10 Essential (primary) hypertension; E11.9 Type 2 diabetes mellitus without complications; I48.20 Chronic atrial fibrillation, unspecified; G50.0 Trigeminal neuralgia; K21.9 Gastro-esophageal reflux disease without esophagitis; E78.00 Pure hypercholesterolemia, unspecified; I25.10 Atherosclerotic heart disease of native coronary artery without angina pectoris; E03.9 Hypothyroidism, unspecified; Q21.1 Atrial septal defect; Z79.01 Long term (current) use of anticoagulants; Z79.899 Other long term (current) drug therapy; Z88.2 Allergy status to sulfonamides; Z88.5 Allergy status to narcotic agent
CPT/HCPCS: 71045; 80048; 80053; 80162; 82565; 84484 ×2; 85014; 85018; 85025 ×2; 85049; 93005; 93306; 96360; 96361 ×2; 97116; 97139; 99285; G0378 ×2; 36415

== ENCOUNTER 2019-08-27 14:00 | Emergency (ER) | payer MEDICARE, OTHER ==
[2019-08-27 15:02] LABS: #Eosinphils 0.1 thou/uL (0.0-0.7); #Lymphocytes 1.1 thou/uL (1.20-3.40); #Monocytes 0.6 thou/uL (0.11-0.59); #Neutrophils 3.5 thou/uL (1.40-6.50); %Basophils 0.7 % (0.0-1.0); %Eosinophils 1.1 % (0.0-10.0); %Lymphocytes 20.3 % (21.0-51.0); %Monocytes 10.9 % (0.0-10.0); %Neutrophils 66.9 % (42.0-75.0); Hemoglobin 16.4 g/dL (14.0-18.0); Mean Corpuscular HGB CONC 33.3 g/dL (32.0-36.0); Mean Corpuscular Hemoglobin 33.4 pg (27.0-31.0); Mean Platelet Volume 8.8 fL (7.4-10.4); Platelet Count 108 thou/uL (130-400); RBC Distribution Width 11.9 % (11.5-14.5); Red Blood Cell (RBC) Count 4.92 mill/uL (4.70-6.10); White Blood Cell (WBC) Count 5.2 thou/uL (4.8-10.8)
[2019-08-27 15:20] LABS: ALT (SGPT) 25 U/L (8-55); AST (SGOT) 23 U/L (5-34); Albumin 4.1 g/dL (3.4-4.8); Alkaline Phosphatase 95 U/L (40-110); Anion Gap 13 mmol/L (10-20); BUN (Urea Nitrogen) 15 mg/dL (8.4-25.7); Bilirubin, Total 0.4 mg/dL (0.2-1.2); Calc. Creatinine Clearance 0 mL/min (70-130); Carbon Dioxide 26 mmol/L (23-31); Chloride 105 mmol/L (98-107); Estimated GFR-MDRD 82; Globulin 2.2 g/dL (2.4-3.5); Glucose 150 mg/dL (83-110); Potassium 4.2 mmol/L (3.5-5.1); Protein, Total 6.3 g/dL (5.8-8.1); Sodium 140 mmol/L (136-145)
--- NOTE | 2019-08-27 18:57 | CT ---
CT OF THE BRAIN WITHOUT CONTRAST: 08/27/19 INDICATION: History of dizziness and fall. COMPARISON: Prior exam dated April 10, 2017. FINDINGS: There is mild chronic small vessel white matter ischemic change with generalized cerebral and cerebel lar atrophy. No acute infarct, hemorrhage, or hydrocephalus is present. Mastoid air cells and paranas al sinuses are clear. Skull is intact. IMPRESSION: No acute intracranial abnormality. POS: BH
== END 2019-08-27 18:07 | disposition home or self-care (01) ==
LOC: ERS 14:00
DX: R53.1 Weakness (principal); H53.8 Other visual disturbances; E11.9 Type 2 diabetes mellitus without complications; E78.00 Pure hypercholesterolemia, unspecified; G50.0 Trigeminal neuralgia; E78.5 Hyperlipidemia, unspecified; I48.91 Unspecified atrial fibrillation; I10 Essential (primary) hypertension; Z79.899 Other long term (current) drug therapy; Z86.73 Personal history of transient ischemic attack (TIA), and cerebral infarction without residual deficits
CPT/HCPCS: 70450; 80053; 84484; 85025; 93005

== ENCOUNTER 2021-05-14 10:27 | Emergency (ER) | payer MEDICARE, BC ==
[2021-05-14 11:34] LABS: Bilirubin Negative (Negative); Blood, Urine Negative (Negative); Clarity Clear (Clear); Glucose, Urine (Dipstick) Normal (Negative); Ketone, Urine Negative (Negative); Leukocyte Negative Leu/uL (Negative); Nitrite Negative (Negative); Protein, Urine (Dipstick) Negative (Neg-Trace); Specific Gravity, Urine 1.014 (1.002-1.036); Urobilinogen Normal mg/dL (Less than 2)
[2021-05-14 11:34] LABS: INR-International Normal Ratio 1.2; PTT 31.6 sec (22.9-36.1); Prothrombin Time 15.6 sec (12.0-14.7)
[2021-05-14 11:35] LABS: ALT (SGPT) 21 U/L (8-55); AST (SGOT) 23 U/L (5-34); Albumin 3.8 g/dL (3.4-4.8); Alkaline Phosphatase 70 U/L (40-110); Anion Gap 12 mmol/L (10-20); BUN (Urea Nitrogen) 15 mg/dL (8.4-25.7); Bilirubin, Total 0.6 mg/dL (0.2-1.2); CRP (Inflammatory) Less than 0.50 mg/dL (= or < 0.5); Calc. Creatinine Clearance 0 mL/min (70-130); Calcium 8.9 mg/dL (7.8-10.44); Carbon Dioxide 29 mmol/L (23-31); Chloride 105 mmol/L (98-107); Digoxin 0.15 ng/mL (0.8-2.0); Globulin 2.2 g/dL (2.4-3.5); Glucose 113 mg/dL (83-110); Potassium 4.6 mmol/L (3.5-5.1); Sodium 141 mmol/L (136-145)
[2021-05-14 11:39] LABS: #Eosinphils 0.1 thou/uL (0.0-0.7); #Lymphocytes 0.9 thou/uL (1.20-3.40); #Monocytes 0.5 thou/uL (0.11-0.59); #Neutrophils 3.3 thou/uL (1.40-6.50); %Basophils 0.7 % (0.0-1.0); %Eosinophils 1.6 % (0.0-10.0); %Lymphocytes 18.2 % (21.0-51.0); %Neutrophils 69.6 % (42.0-75.0); Hemoglobin 15.9 g/dL (14.0-18.0); Mean Platelet Volume 8.1 fL (7.4-10.4); Platelet Count 101 thou/uL (130-400); Platelet Morphology Comment Appears Decreased; RBC Distribution Width 11.6 % (11.5-14.5); Red Blood Cell (RBC) Count 4.83 mill/uL (4.70-6.10); White Blood Cell (WBC) Count 4.7 thou/uL (4.8-10.8)
[2021-05-14 11:40] LABS: MDiff Complete? YES
== END 2021-05-14 14:30 | disposition home or self-care (01) ==
LOC: ERS 10:27
DX: R53.1 Weakness (principal); I10 Essential (primary) hypertension; E11.9 Type 2 diabetes mellitus without complications; K21.9 Gastro-esophageal reflux disease without esophagitis; E78.5 Hyperlipidemia, unspecified; E78.00 Pure hypercholesterolemia, unspecified; I48.91 Unspecified atrial fibrillation; Z79.01 Long term (current) use of anticoagulants; Z79.899 Other long term (current) drug therapy
CPT/HCPCS: 72131; 80053; 80162; 81003; 85025; 85610; 85652; 85730; 86140; 87086

== ENCOUNTER 2021-12-28 12:32 | Outpatient (CLI) | payer MEDICARE, BC | END 2021-12-28 12:33 | disposition home or self-care (01) | LOC: BICCT 12:32 | PROVIDERS: ATTEND Psychiatry & Neurology Neurology | DX: R41.3 Other amnesia (principal); I65.23 Occlusion and stenosis of bilateral carotid arteries | CPT/HCPCS: 70450 ==

== ENCOUNTER 2022-06-06 19:00 | Outpatient (CLI) | payer MEDICARE, BC | END 2022-06-06 19:01 | disposition home or self-care (01) | LOC: SLEEPLAB 19:00 | PROVIDERS: ATTEND Internal Medicine | DX: G47.33 Obstructive sleep apnea (adult) (pediatric) (principal); F32.A Depression, unspecified; R06.83 Snoring; I25.10 Atherosclerotic heart disease of native coronary artery without angina pectoris; I10 Essential (primary) hypertension; G47.31 Primary central sleep apnea | CPT/HCPCS: 95811 ==

== ENCOUNTER 2023-03-13 19:18 | Emergency (ER) | payer MEDICARE, BC ==
[2023-03-13 20:24] LABS: #Eosinphils 0.1 thou/uL (0.0-0.7); #Monocytes 0.5 thou/uL (0.11-0.59); #Neutrophils 3.2 thou/uL (1.40-6.50); %Basophils 0.8 % (0.0-1.0); %Eosinophils 2.2 % (0.0-10.0); %Monocytes 10.8 % (0.0-10.0); %Neutrophils 64.8 % (42.0-75.0); Hematocrit 46.2 % (42.0-52.0); Hemoglobin 15.5 g/dL (14.0-18.0); Mean Corpuscular HGB CONC 33.5 g/dL (32.0-36.0); Mean Corpuscular Hemoglobin 33.3 pg (27.0-31.0); Mean Corpuscular Volume 99.1 fl (78.0-98.0); Mean Platelet Volume 10.6 fL (7.4-10.4); RBC Distribution Width 12.3 % (11.5-14.5); Red Blood Cell (RBC) Count 4.66 mill/uL (4.70-6.10)
[2023-03-13 20:31] LABS: Platelet Count 113 10x3/uL (130-400)
[2023-03-13 20:37] LABS: INR-International Normal Ratio 1.1; PTT 27.7 sec (22.9-36.1); Prothrombin Time 14.9 sec (12.0-14.7)
[2023-03-13 20:45] LABS: ALT (SGPT) 22 U/L (8-55); AST (SGOT) 26 U/L (5-34); Albumin 4.5 g/dL (3.4-4.8); Alkaline Phosphatase 88 U/L (40-110); Anion Gap 12 mmol/L (10-20); BUN (Urea Nitrogen) 24 mg/dL (8.4-25.7); Bilirubin, Total 0.5 mg/dL (0.2-1.2); Calc. Creatinine Clearance 0 mL/min (70-130); Calcium 9.9 mg/dL (7.8-10.44); Carbon Dioxide 34 mmol/L (23-31); Chloride 102 mmol/L (98-107); Estimated GFR 68; Globulin 2.3 g/dL (2.4-3.5); Glucose 102 mg/dL (83-110); Lipase 35 U/L (8-78); Potassium 4.2 mmol/L (3.5-5.1); Protein, Total 6.8 g/dL (5.8-8.1); Sodium 144 mmol/L (136-145)
[2023-03-13 20:55] LABS: Troponin I Less than 0.010 ng/mL (< 0.028)
[2023-03-13 21:18] LABS: Bacteria/HPF None Seen HPF (None Seen); Bilirubin Negative (Negative); Blood, Urine Negative (Negative); CAUTI Indications for Culture Pelvic or flank pain; Clarity Clear (Clear); Glucose, Urine (Dipstick) Normal (Negative); Ketone, Urine Negative (Negative); Leukocyte Negative Leu/uL (Negative); Nitrite Negative (Negative); Protein, Urine (Dipstick) Negative (Neg-Trace); RBC/HPF None Seen HPF (0-3); Specific Gravity, Urine 1.015 (1.002-1.036); Squamous Epithelial None Seen HPF (0-3); Urobilinogen Normal mg/dL (Less than 2); WBC/HPF 0-3 HPF (0-3); pH, Urine 6.5 (5.0-9.0)
[2023-03-13 21:21] LABS: Urine Culture Reflex No No
[2023-03-13 21:30] LABS: Magnesium 2.1 mg/dL (1.6-2.6)
== END 2023-03-14 11:44 | disposition home or self-care (01) ==
LOC: ERS 19:18
DX: R53.1 Weakness (principal); R42 Dizziness and giddiness; R26.2 Difficulty in walking, not elsewhere classified; B35.9 Dermatophytosis, unspecified; E11.9 Type 2 diabetes mellitus without complications; I10 Essential (primary) hypertension; M54.2 Cervicalgia; R07.9 Chest pain, unspecified; I48.91 Unspecified atrial fibrillation
CPT/HCPCS: 36415; 70450; 70496; 70498; 71045; 72125; 80053; 81001; 83605; 83690; 83735; 84443; 84484; 85025; 85610; 85730; 87040; 93005; 96360